=== PATIENT | female | born 1990 | race Caucasian/White ===

== ENCOUNTER 2018-04-10 05:57 | Emergency (ER) | payer OTHER, SELFPAY ==
--- NOTE | 2018-04-10 06:21 | ER ---
Nurse's Notes [facility] Name: Andreia Vidales Age: 27 yrs Sex: Female : 1990 Arrival Date: 04/10/2018 Time: 06:01 Bed 7 Private MD: Diagnosis: Dental root caries;Dentalgia Presentation: 04/10 06:13 Presenting complaint: Patient states: left top tooth pain. pt with dentist appointment ak1 next week. pt drove herself to ER. Transition of care: patient was not received from another setting of care. Onset of symptoms was April 10, 2018. Risk Assessment: Do you want to hurt yourself or someone else? Patient reports no desire to harm self or others. Initial Sepsis Screen: Does the patient meet any 2 criteria? No. Patient's initial sepsis screen is negative. Does the patient have a suspected source of infection? No. Patient's initial sepsis screen is negative. Care prior to arrival: None. 06:13 Method Of Arrival: Ambulatory ak1 06:13 Acuity: BILLY 4 ak1 Triage Assessment: 06:20 General: Appears in no apparent distress. Behavior is calm, cooperative. Pain: ak1 Complains of pain in lower left first molar (#19) and upper left first molar (#14). EENT: Reports pain in lower left first molar (#19) and upper left first molar (#14). Neuro: No deficits noted. Cardiovascular: No deficits noted. Respiratory: No deficits noted. GI: No signs and/or symptoms were reported involving the gastrointestinal system. : No signs and/or symptoms were reported regarding the genitourinary system. Derm: No signs and/or symptoms reported regarding the dermatologic system. Musculoskeletal: No signs and/or symptoms reported regarding the musculoskeletal system. 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 - Social history:: Smoking status: Patient uses tobacco products, smokes one-half pack cigarettes per day. - Ebola Screening: : No symptoms or risks identified at this time. Screenin:22 Abuse screen: Denies threats or abuse. Denies injuries from another. Nutritional ak1 screening: No deficits noted. Tuberculosis screening: No symptoms or risk factors identified. Fall Risk None identified. Vital Signs: 06:11 BP 131 / 87; Pulse 79; Resp 18; Temp 98.1(O); Pulse Ox 97% on R/A; Weight 77.11 kg (R); ak1 Height 5 ft. 1 in. (154.94 cm) (R); Pain 5/10; 06:11 Body Mass Index 32.12 (77.11 kg, 154.94 cm) ak1 ED Course: 06:01 Patient arrived in ED. es 06:09 Niko Montgomery PA is PHCP. jr8 06:09 Ranjan Chnag MD is Attending Physician. jr8 06:11 Andreia Scruggs, RN is Primary Nurse. ak1 06:11 Arm band placed on Patient placed in an exam room, on a stretcher, on pulse oximetry, ak1 Patient notified of wait time. 06:14 Triage completed. ak1 06:23 Patient has correct armband on for positive identification. Bed in low position. Call ak1 light in reach. Side rails up X 1. Pulse ox on. NIBP on. 06:37 No provider procedures requiring assistance completed. Patient did not have IV access ak1 during this emergency room visit. Administered Medications: 06:36 Drug: TORadol 60 mg Route: IM; Site: right gluteus; ak1 06:36 Follow up: Response: No adverse reaction ak1 06:36 Drug: Clindamycin 300 mg Route: PO; ak1 06:36 Follow up: Response: No adverse reaction ak1 Outcome: 06:20 Discharge ordered by . jr8 06:37 Discharged to home ambulatory. ak1 06:37 Condition: good 06:37 Discharge instructions given to patient, Instructed on discharge instructions, follow up and referral plans. no drinking with medication, no driving heavy equipment, medication usage, safe sex practices, control, Demonstrated understanding of instructions, follow-up care, medications, Prescriptions given X 3. 06:42 Patient left the ED. ak1 Signatures: Mary [employer] Painting Niko Montgomery PA PA jr8 Andreia Scruggs, RN RN ak1
--- NOTE | 2018-04-10 06:21 | EDPHYS ---
Physician Documentation [facility] Name: Andreia Vidales Age: 27 yrs Sex: Female : 1990 Arrival Date: 04/10/2018 Time: 06:01 Bed 7 Private MD: ED Physician Ranjan Chang HPI: 04/10 06:16 This 27 yrs old Female presents to ER via Ambulatory with complaints of jr8 Toothache. 06:16 The patient presents with broken tooth/teeth, pain. The problem is located in the left jr8 upper jaw. Onset: The symptoms/episode began/occurred acutely, last night. Duration: The symptoms are continuous. Modifying factors: The symptoms are alleviated by nothing, the symptoms are aggravated by air, chewing, talking. Associated signs and symptoms: The patient has no apparent associated signs or symptoms. Severity of symptoms: At their worst the symptoms were moderate, in the emergency department the symptoms are unchanged. The patient has experienced similar episodes in the past, a few times. The patient has not recently seen a physician. Stated that she has bad teeth. Started with pain in the upper left jaw last night that woke him up from sleep. Pain has continued through to this morning without relief . 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 - Social history:: Smoking status: Patient uses tobacco products, smokes one-half pack cigarettes per day. - Ebola Screening: : No symptoms or risks identified at this time. ROS: 06:16 Constitutional: Negative for fever, chills, and weight loss. jr8 06:16 ENT: Positive for dental pain. 06:16 All other systems are negative. Exam: 06:16 Head/Face: Normocephalic, atraumatic. Eyes: Pupils equal round and reactive to light, jr8 extra-ocular motions intact. Lids and lashes normal. Conjunctiva and sclera are non-icteric and not injected. Cornea within normal limits. Periorbital areas with no swelling, redness, or edema. Neck: Trachea midline, no thyromegaly or masses palpated, and no cervical lymphadenopathy. Supple, full range of motion without nuchal rigidity, or vertebral point tenderness. No Meningismus. Cardiovascular: Regular rate and rhythm with a normal S1 and S2. No gallops, murmurs, or rubs. Normal PMI, no JVD. No pulse deficits. Respiratory: Lungs have equal breath sounds bilaterally, clear to auscultation and percussion. No rales, rhonchi or wheezes noted. No increased work of breathing, no retractions or nasal flaring. Abdomen/GI: Soft, non-tender, with normal bowel sounds. No distension or tympany. No guarding or rebound. No evidence of tenderness throughout. Back: No spinal tenderness. No costovertebral tenderness. Full range of motion. Skin: Warm, dry with normal turgor. Normal color with no rashes, no lesions, and no evidence of cellulitis. MS/ Extremity: Pulses equal, no cyanosis. Neurovascular intact. Full, normal range of motion. Neuro: Awake and alert, GCS 15, oriented to person, place, time, and situation. Cranial nerves II-XII grossly intact. Motor strength 5/5 in all extremities. Sensory grossly intact. Cerebellar exam normal. Normal gait. 06:16 ENT: Exam is negative for earache, ear discharge, TM abnormalities, nasal discharge, Mouth: Lips: moist, Oral mucosa: pink and intact, moist, Gums: pink, Tongue: is moist, Posterior pharynx: Airway: patent, Tonsils: are normal in appearance, Uvula: midline, non-edematous, no erythema, swelling, is not appreciated, erythema, is not appreciated, Dental exam: dental caries, that is moderate, diffusely, fractured teeth are noted, specifically the upper left first molar (#14) and lower left first molar (#19), pain, that is moderate, specifically in the upper left first molar (#14). Vital Signs: 06:11 BP 131 / 87; Pulse 79; Resp 18; Temp 98.1(O); Pulse Ox 97% on R/A; Weight 77.11 kg (R); ak1 Height 5 ft. 1 in. (154.94 cm) (R); Pain 5/10; 06:11 Body Mass Index 32.12 (77.11 kg, 154.94 cm) ak1 MDM: 06:09 Patient medically screened. jr8 06:16 Data reviewed: vital signs, nurses notes, and as a result, I will discharge patient. jr8 Data interpreted: Pulse oximetry: on room air is 97 %. Interpretation: normal. Counseling: I had a detailed discussion with the patient and/or guardian regarding: the historical points, exam findings, and any diagnostic results supporting the discharge/admit diagnosis, the need for outpatient follow up, a dentist, to return to the emergency department if symptoms worsen or persist or if there are any questions or concerns that arise at home. Administered Medications: 06:36 Drug: TORadol 60 mg Route: IM; Site: right gluteus; ak1 06:36 Follow up: Response: No adverse reaction ak1 06:36 Drug: Clindamycin 300 mg Route: PO; ak1 06:36 Follow up: Response: No adverse reaction ak1 Disposition: 04/11 04:04 Co-signature as Attending Physician, Ranjan Chang MD I agree with the assessment and wa plan of care. Disposition: 04/10/18 06:20 Discharged to Home. Impression: Dental root caries, Dentalgia. - Condition is Stable. - Discharge Instructions: Dental Caries, Adult, Dental Pain. - Prescriptions for Clindamycin HCl 300 mg Oral Capsule - take 1 capsule by ORAL route every 6 hours for 10 days; 40 capsule. Ibuprofen 800 mg Oral Tablet - take 1 tablet by ORAL route every 8 hours As needed take with food; 30 tablet. Tylenol- Codeine #3 300-30 mg Oral Tablet - take 2 tablets by ORAL route every 6 hours As needed; 20 tablet. - Medication Reconciliation Form, Thank You Letter, Antibiotic Education, Prescription Opioid Use, Work release form form. - Follow up: Private Physician; When: 1 week; Reason: Recheck today's complaints, Continuance of care, Re-evaluation by your physician. - Problem is new. - Symptoms have improved. Signatures: Niko Montgomery PA PA jr8 Andreia Scruggs RN RN ak1 Ranjan Chang MD MD wa Corrections: (The following items were deleted from the chart) 04/10 06:42 06:20 04/10/2018 06:20 Discharged to Home. Impression: Dental root caries; Dentalgia. ak1 Condition is Stable. Prescriptions for Clindamycin HCl 300 mg Oral Capsule - take 1 capsule by ORAL route every 6 hours for 10 days; 40 capsule, Ibuprofen 800 mg Oral Tablet - take 1 tablet by ORAL route every 8 hours As needed take with food; 30 tablet, Tylenol-Codeine #3 300-30 mg Oral Tablet - take 2 tablets by ORAL route every 6 hours As needed; 20 tablet. and Forms are Medication Reconciliation Form, Thank You Letter, Antibiotic Education, Prescription Opioid Use. Follow up: Private Physician; When: 1 week; Reason: Recheck today's complaints, Continuance of care, Re-evaluation by your physician. Problem is new. Symptoms have improved. jr8
[2018-04-10] MEDS ORDERED: CLINDAMYCIN HCL 150 MG CAP ONE (06:34)
[2018-04-10] MEDS ORDERED: KETOROLAC 30 MG/ML INJ ONE (06:35)
[2018-04-10 06:53] VITALS: BP 131/87; TEMP 98.1; O2SAT 97
== END 2018-04-10 06:42 | disposition home or self-care (01) ==
LOC: ER 05:57
DX: K02.7 Dental root caries (principal); F17.210 Nicotine dependence, cigarettes, uncomplicated; Z88.0 Allergy status to penicillin
CPT/HCPCS: 96372; 99283

== ENCOUNTER 2020-04-04 20:06 | Emergency (ER) | payer OTHER ==
--- OUTSIDE RECORDS SUMMARY | 2020-04-04 20:08 | XMS REPORT | Continuity of Care Document ---
:1990 Author Organization [facility] t Address [address] [place] [address] Care Team Providers Name Role Phone Samm BERRY Attending Clinician Doctor Unassigned, Name Attending Clinician Unavailable Problems This patient has no known problems. Allergies, Adverse Reactions, Alerts This patient has no known allergies or adverse reactions. Medications This patient has no known medications. Procedures This patient has no known procedures. Encounters Start End Encounter Admission Attending Care Care Encounter Source Date/Time Date/Time Type Type Clinicians Facility Department ID 2019-12-23 2019-12-23 Office SANDRA Quijano [id number] 14:09:22 14:39:22 Visit Wendy Champion [id number] [place] [id number] [place] [id number] [address] 2019-12-23 2019-12-23 Orders Doctor JOSUE [id number] 00:00:00 00:00:00 Only UnassTERE carias [id number] [place] [facility] [id number] Results This patient has no known results.
[2020-04-04] MEDS ORDERED: FENTANYL CITR 100 MCG/2 ML ONE ×2 (21:11→21:44)
[2020-04-04 21:12] LABS: Absolute Lymphocytes (CBC) 3.9 K/uL (0.7-4.9); Basophils % 1.1 % (0-1.3); Hematocrit 39.2 % (36.0-45.0); Lymphocytes % 39.5 % (15.3-44.8); MPV 7.9 fL (7.6-11.3); RBC Red Blood Cell Count 4.51 M/uL (3.86-4.86)
[2020-04-04] MEDS ORDERED: NA CHLORIDE 0.9% 1,000 ML ONE (21:12)
[2020-04-04] MEDS ORDERED: ONDANSETRON 4 MG/2 ML VIAL ONE (21:12)
[2020-04-04 21:21] LABS: ALT/SGPT 42 U/L (12-78); AST/SGOT 23 U/L (15-37); Albumin 3.5 g/dL (3.4-5.0); Alkaline Phosphatase 112 U/L (45-117); BUN Blood Urea Nitrogen 10 mg/dL (7-18); Bicarbonate 26 mmol/L (21-32); Bilirubin Direct 0.1 mg/dL (0-0.2); Bilirubin Total 0.3 mg/dL (0.2-1.0); Glucose Level 81 mg/dL (74-106); Lipase 88 U/L (73-393); Potassium 3.6 mmol/L (3.5-5.1); Protein, Total 7.4 g/dL (6.4-8.2); Sodium Level 140 mmol/L (136-145)
--- NOTE | 2020-04-04 21:24 | EDPHYS ---
Physician Documentation [facility] Name: Andreia Vidales Age: 29 yrs Sex: Female : 1990 Arrival Date: 04/04/2020 Time: 20:10 Bed 7 Private MD: ED Physician Oliver South HPI: 04/04 20:42 This 29 yrs old Female presents to ER via Ambulatory with complaints of Flank kb Pain - gallbladder. 20:42 The patient presents with abdominal pain in the right upper quadrant. Onset: The kb symptoms/episode began/occurred 2 day(s) ago. The symptoms do not radiate. Associated signs and symptoms: none. The symptoms are described as constant. Modifying factors: The symptoms are alleviated by nothing, the symptoms are aggravated by nothing. Severity of pain: At its worst the pain was moderate in the emergency department the pain is unchanged. The patient has experienced similar episodes in the past. The patient has not recently seen a physician. Historical: - Allergies: 20:18 PENICILLINS; ll1 20:18 Codeine; ll1 20:18 [place]; ll1 - PSHx: 20:18 ; tubes tied; ll1 - Immunization history:: Flu vaccine is not up to date. - Social history:: Smoking status: Patient/guardian denies using tobacco, Stopped _ months ago .5. ROS: 20:41 Constitutional: Negative for fever, chills, and weight loss, Cardiovascular: Negative kb for chest pain, palpitations, and edema, Respiratory: Negative for shortness of breath, cough, wheezing, and pleuritic chest pain, Back: Negative for injury and pain, MS/Extremity: Negative for injury and deformity, Skin: Negative for injury, rash, and discoloration, Neuro: Negative for headache, weakness, numbness, tingling, and seizure. 20:41 Abdomen/GI: Positive for abdominal pain, Negative for nausea, vomiting, and diarrhea. Exam: 20:41 Constitutional: This is a well developed, well nourished patient who is awake, alert, kb and in no acute distress. Head/Face: Normocephalic, atraumatic. Chest/axilla: Normal chest wall appearance and motion. Nontender with no deformity. No lesions are appreciated. Cardiovascular: Regular rate and rhythm with a normal S1 and S2. No gallops, murmurs, or rubs. Normal PMI, no JVD. No pulse deficits. Respiratory: Lungs have equal breath sounds bilaterally, clear to auscultation and percussion. No rales, rhonchi or wheezes noted. No increased work of breathing, no retractions or nasal flaring. Back: No spinal tenderness. No costovertebral tenderness. Full range of motion. Skin: Warm, dry with normal turgor. Normal color with no rashes, no lesions, and no evidence of cellulitis. MS/ Extremity: Pulses equal, no cyanosis. Neurovascular intact. Full, normal range of motion. Neuro: Awake and alert, GCS 15, oriented to person, place, time, and situation. Cranial nerves II-XII grossly intact. Motor strength 5/5 in all extremities. Sensory grossly intact. Cerebellar exam normal. Normal gait. 20:41 Abdomen/GI: Inspection: abdomen appears normal, Bowel sounds: normal, in all quadrants, Palpation: soft, in all quadrants, moderate abdominal tenderness, in the right upper quadrant. Vital Signs: 20:18 BP 114 / 83; Pulse 69; Resp 17; Temp 98.6; Pulse Ox 100% ; Weight 72.57 kg; Height 5 ll1 ft. 1 in. (154.94 cm); Pain 4/10; 21:00 BP 108 / 66; Pulse 68; Resp 16; Pulse Ox 100% on R/A; rv 22:00 BP 112 / 80; Pulse 78; Resp 18; Temp 98.5; Pulse Ox 99% on R/A; rv 20:18 Body Mass Index 30.23 (72.57 kg, 154.94 cm) ll1 MDM: 20:21 Patient medically screened. kb 20:41 Data reviewed: vital signs, nurses notes. Data interpreted: Pulse oximetry: on room air kb is 100 %. Interpretation: normal. 21:23 Counseling: I had a detailed discussion with the patient and/or guardian regarding: the kb historical points, exam findings, and any diagnostic results supporting the discharge/admit diagnosis, lab results, radiology results, the need for outpatient follow up, a general surgeon, to return to the emergency department if symptoms worsen or persist or if there are any questions or concerns that arise at home. 04/04 20:21 Order name: Basic Metabolic Panel; Complete Time: 21:23 kb 11/03 20:21 Order name: CBC with Diff; Complete Time: 21:16 kb 04/04 20:21 Order name: US Abdomen Limited kb 04/04 20:21 Order name: Hepatic Function; Complete Time: 21:23 kb 04/04 20:21 Order name: Lipase; Complete Time: 21:23 kb 04/04 20:21 Order name: IV Saline Lock; Complete Time: 20:50 kb 04/04 20:21 Order name: Labs collected and sent; Complete Time: 20:50 kb Administered Medications: 21:05 Drug: NS 0.9% 1000 ml Route: IV; Rate: 1000 ml; Site: right antecubital; rv 22:20 Follow up: IV Status: Completed infusion; IV Intake: 1000ml rv 21:06 Drug: fentaNYL (PF) 50 mcg {Note: rass 0.} Route: IVP; Site: right antecubital; rv 22:00 Follow up: Response: No adverse reaction; Pain is unchanged, physician notified rv 21:06 Drug: Zofran (Ondansetron) 4 mg Route: IVP; Site: right antecubital; rv 22:20 Follow up: Response: No adverse reaction rv 21:30 Drug: fentaNYL (PF) 50 mcg Route: IVP; Site: right antecubital; jb4 22:00 Follow up: Response: No adverse reaction; Pain is unchanged, physician notified; RASS: rv Alert and Calm (0) 21:30 Drug: Pepcid 20 mg Route: IVP; Site: right antecubital; jb4 22:21 Follow up: Response: No adverse reaction rv 21:57 CANCELLED (Physician Discretion): morphine 4 mg IVP once; RASS on ADMIN: Combtv4, Very kb Agttd3, Agttd2, Rstlss1, AlertClm0, Drwsy-1, Lt Sdtn-2, Mod Sdtn-3, Dp Sdtn-4, UnArsble-5 22:02 Drug: TORadol 30 mg Route: IVP; Site: right antecubital; rv 22:21 Follow up: Response: No adverse reaction; Pain is decreased rv Disposition: 04/05 09:50 Co-signature as Attending Physician, Oliver South MD I agree with the assessment and [place] plan of care. Disposition: 04/04/20 21:24 Discharged to Home. Impression: Cholelithiasis. - Condition is Stable. - Discharge Instructions: Cholelithiasis, [id number]. - Prescriptions for Zofran 4 mg Oral Tablet - take 1 tablet by ORAL route every 6 hours As needed; 20 tablet. Diclofenac Sodium 75 mg Oral Tablet, Delayed Release (E.C.) - take 1 tablet by ORAL route 2 times per day As needed; 30 tablet. - Medication Reconciliation Form, Thank You Letter, Antibiotic Education, Prescription Opioid Use form. - Follow up: Emergency Department; When: As needed; Reason: Worsening of condition. Follow up: Private Physician; When: 2 - 3 days; Reason: Recheck today's complaints, Continuance of care, Re-evaluation by your physician. Signatures: Dispatcher [employer] EDAmairani Davenport, MARKETING INTERN-C MARKETING INTERN-Oliver Becker MD MD cha Bryson, James, RN RN jb4 Dar Meléndez RN RN rv Margo Harvey RN RN ll1 Corrections: (The following items were deleted from the chart) 04/04 21:57 21:56 morphine 4 mg IVP once; RASS on ADMIN: Combtv4, Very Agttd3, Agttd2, Rstlss1, kb AlertClm0, Drwsy-1, Lt Sdtn-2, Mod Sdtn-3, Dp Sdtn-4, UnArsble-5 ordered. kb 22:24 21:24 04/04/2020 21:24 Discharged to Home. Impression: Cholelithiasis. Condition is rv Stable. Forms are Medication Reconciliation Form, Thank You Letter, Antibiotic Education, Prescription Opioid Use. Follow up: Emergency Department; When: As needed; Reason: Worsening of condition. Follow up: Private Physician; When: 2 - 3 days; Reason: Recheck today's complaints, Continuance of care, Re-evaluation by your physician. kb
--- NOTE | 2020-04-04 21:24 | ER ---
Nurse's Notes [facility] Name: Andreia Vidales Age: 29 yrs Sex: Female : 1990 Arrival Date: 04/04/2020 Time: 20:10 Bed 7 Private MD: Diagnosis: Cholelithiasis Presentation: 04/04 20:18 Coronavirus screen: Client denies travel out of the [place] in the last 14 days. At this ll1 time, the client does not indicate any symptoms associated with coronavirus-19. Ebola Screen: Patient denies travel to an Ebola-affected area in the 21 days before illness onset. Initial Sepsis Screen: Does the patient meet any 2 criteria? No. Patient's initial sepsis screen is negative. Does the patient have a suspected source of infection? Yes: Acute abdominal pain. Risk Assessment: Do you want to hurt yourself or someone else? Patient reports no desire to harm self or others. Onset of symptoms was April 03, 2020. 20:18 Method Of Arrival: Ambulatory ll1 20:18 Acuity: BILLY 3 ll1 20:19 Chief complaint: Patient states: RUQ abd pain for 2 days, more constant than usual. ll1 Pain more diffuse for the past two days. States she knows she has gallbladder problems. + N/V. No fever. Historical: - Allergies: 20:18 PENICILLINS; ll1 20:18 Codeine; ll1 20:18 [place]; ll1 - PSHx: 20:18 ; tubes tied; ll1 - Immunization history:: Flu vaccine is not up to date. - Social history:: Smoking status: Patient/guardian denies using tobacco, Stopped _ months ago .5. Screenin:08 Abuse screen: Denies threats or abuse. Denies injuries from another. Nutritional rv screening: No deficits noted. Tuberculosis screening: No symptoms or risk factors identified. Fall Risk None identified. Assessment: 21:06 General: Appears uncomfortable, Behavior is calm, cooperative. Pain: Complains of pain rv in right upper quadrant. Pain: Pain currently is 6 out of 10 on a pain scale. Neuro: Level of Consciousness is awake, alert, obeys commands, Oriented to person, place, time, situation. Cardiovascular: Patient's skin is warm and dry. Respiratory: Airway is patent Respiratory effort is even, unlabored, Breath sounds are clear bilaterally. GI: Abdomen is flat, non-distended. Derm: Skin is healthy with good turgor. Vital Signs: 20:18 BP 114 / 83; Pulse 69; Resp 17; Temp 98.6; Pulse Ox 100% ; Weight 72.57 kg; Height 5 ll1 ft. 1 in. (154.94 cm); Pain 4/10; 21:00 BP 108 / 66; Pulse 68; Resp 16; Pulse Ox 100% on R/A; rv 22:00 BP 112 / 80; Pulse 78; Resp 18; Temp 98.5; Pulse Ox 99% on R/A; rv 20:18 Body Mass Index 30.23 (72.57 kg, 154.94 cm) ll1 ED Course: 20:10 Patient arrived in ED. am2 20:13 Amairani Gillette FNP-C is PHCP. kb 20:13 Oliver South MD is Attending Physician. kb 20:18 Arm band placed on Patient placed in an exam room, on a stretcher. ll1 20:19 Triage completed. ll1 20:21 Dar Meléndez, EVY is Primary Nurse. rv 20:45 Inserted saline lock: 20 gauge in right antecubital area, using aseptic technique. ds4 Blood collected. 20:49 US Abdomen Limited In Process Unspecified. EDMS 21:08 Patient has correct armband on for positive identification. Placed in gown. Bed in low rv position. Call light in reach. Pulse ox on. NIBP on. 22:23 No provider procedures requiring assistance completed. IV discontinued, intact, rv bleeding controlled, No redness/swelling at site. Pressure dressing applied. Administered Medications: 21:05 Drug: NS 0.9% 1000 ml Route: IV; Rate: 1000 ml; Site: right antecubital; rv 22:20 Follow up: IV Status: Completed infusion; IV Intake: 1000ml rv 21:06 Drug: fentaNYL (PF) 50 mcg {Note: rass 0.} Route: IVP; Site: right antecubital; rv 22:00 Follow up: Response: No adverse reaction; Pain is unchanged, physician notified rv 21:06 Drug: Zofran (Ondansetron) 4 mg Route: IVP; Site: right antecubital; rv 22:20 Follow up: Response: No adverse reaction rv 21:30 Drug: fentaNYL (PF) 50 mcg Route: IVP; Site: right antecubital; jb4 22:00 Follow up: Response: No adverse reaction; Pain is unchanged, physician notified; RASS: rv Alert and Calm (0) 21:30 Drug: Pepcid 20 mg Route: IVP; Site: right antecubital; jb4 22:21 Follow up: Response: No adverse reaction rv 21:57 CANCELLED (Physician Discretion): morphine 4 mg IVP once; RASS on ADMIN: Combtv4, Very kb Agttd3, Agttd2, Rstlss1, AlertClm0, Drwsy-1, Lt Sdtn-2, Mod Sdtn-3, Dp Sdtn-4, UnArsble-5 22:02 Drug: TORadol 30 mg Route: IVP; Site: right antecubital; rv 22:21 Follow up: Response: No adverse reaction; Pain is decreased rv Intake: 22:20 IV: 1000ml; Total: 1000ml. rv Outcome: 21:24 Discharge ordered by MD. kb 22:23 Discharged to home ambulatory, with family. rv 22:23 Condition: good 22:23 Discharge instructions given to patient, Instructed on discharge instructions, follow up and referral plans. medication usage, Demonstrated understanding of instructions, follow-up care, medications, Prescriptions given X 2. 22:24 Patient left the ED. rv Signatures: Dispatcher [employer] EDMS Amairani Gillette, WATCHER LOOKOUT TOWER-C WATCHER LOOKOUT TOWER-Daryn Choi ds4 Bc Snowden RN RN jb4 Aleena Lara am2 Dar Meléndez RN RN Margo Finn RN RN ll1
[2020-04-04] MEDS ORDERED: FAMOTIDINE 20 MG/2 ML VIAL IV ONE (21:44)
[2020-04-04] MEDS ORDERED: KETOROLAC 30 MG/ML INJ ONE (22:10)
[2020-04-04 22:40] VITALS: BP 112/80; TEMP 98.5; O2SAT 99
--- NOTE | 2020-04-05 07:08 | RAD REPORT ---
EXAM DESCRIPTION: US - Abdomen Exam Limited - 04/04/2020 8:48 pm CLINICAL HISTORY: ABD PAIN COMPARISON: ABDOMINAL EXAM LIMITED dated 09/21/2011 FINDINGS: Multiple gallstones are present along with a moderate amount of sludge. There is no wall t hickening or pericholecystic fluid. No common duct stone or biliary tree dilatation identified. IMPRESSION: Multi stone cholelithiasis and sludge. Acute cholecystitis findings are not identified.
== END 2020-04-04 22:24 | disposition home or self-care (01) ==
LOC: ER 20:06
DX: K80.20 Calculus of gallbladder without cholecystitis without obstruction (principal); Z88.0 Allergy status to penicillin; Z88.5 Allergy status to narcotic agent; Z91.018 Allergy to other foods
CPT/HCPCS: 96361; 85025; 80048; 36415; 80076; 83690; 76705; 96375; 96374; 99284; J3010 ×2; J7030; J2405

== ENCOUNTER 2023-01-10 09:20 | Observation (INO) | payer OTHER ==
[2023-01-10] MEDS ORDERED: BUPIVACAINE 0.25% PF 30 ML VIAL ONE (09:57)
[2023-01-10] MEDS: Ringers Lactate 1,000 ML IV ONE (10:00)
[2023-01-10] MEDS ORDERED: CEFOXITIN SODIUM 2 GM/VIAL ONE (10:07)
[2023-01-10] MEDS ORDERED: propofoL 200 MG/20 ML VIAL IV ONE (10:27)
[2023-01-10] MEDS ORDERED: MIDAZOLAM HCL 2 MG/2 ML INJ ONE (10:27)
[2023-01-10] MEDS ORDERED: dexAMETHasone 10 MG/ML VIAL ONE (10:27)
[2023-01-10] MEDS ORDERED: FENTANYL CITR 100 MCG/2 ML ONE ×2 (10:27→11:42)
[2023-01-10] MEDS ORDERED: LIDOCAINE 2% MPF 5 ML VIAL ONE (10:28)
[2023-01-10] MEDS ORDERED: KETOROLAC 30 MG/ML INJ ONE (10:28)
[2023-01-10] MEDS ORDERED: ROCURONIUM 50 MG/5 ML VIAL IV ONE ×2 (10:28→11:23)
[2023-01-10] MEDS ORDERED: ONDANSETRON 4 MG/2 ML VIAL ONE ×2 (10:28→14:01)
[2023-01-10] MEDS ORDERED: CIPROFLOXACIN 400mg IV 400 MG/200 ML BAG IV ONE (10:59)
[2023-01-10] MEDS ORDERED: NEOSTIGMINE 1 MG/ML -10 ML VIAL ONE (11:46)
[2023-01-10] MEDS ORDERED: GLYCOPYRROLATE 0.2 MG/ML SYR ONE (11:46)
[2023-01-10] MEDS ORDERED: TRANEXAMIC ACID 1,000 MG/10 ML VIAL IV ONE (11:51)
[2023-01-10] MEDS ORDERED: Ringers Lactate 1,000 ML IV ONE (12:06)
--- NOTE | 2023-01-10 12:17 | P.OP ---
Preoperative diagnosis: Cholecystitis with cholelithiasis Postoperative diagnosis: Cholecystitis with cholelithiasis Primary procedure: Laparoscopic cholecystectomy with ICG Anesthesia: GETA + Local Estimated blood loss: 30cc Specimen: Gallbladder Findings: Diffuse oozing from liver, all cut surfaces, short cystic duct Complications: None Implants: Surgicel, Shilpa powder Transferred to: Recovery Room Condition: Good
[2023-01-10] MEDS ORDERED: D5.45NS W/KCL 20MEQ 1,000 ML IV SCH (13:00)
[2023-01-10 13:20] LABS: Lymphocytes % 19.3 % (15.3-44.8); MCV 87.1 fL (80-100); Platelets 334 thou/uL (152-406); RBC Red Blood Cell Count 4.71 M/uL (3.86-4.86)
[2023-01-10] MEDS: FENTANYL CITR 100 MCG/2 ML ONE ×4 (13:40→14:36)
--- OUTSIDE RECORDS SUMMARY | 2023-01-10 14:14 | XMS REPORT | Continuity of Care Document ---
:1990 Author Organization [facility] t Address [address] [place] [place] [address] Care Team Providers Name Role Phone GERARDO Ricks [facility] Primary Care P hysician Unavailable MANDEEP BEAN Attending Clinician Unavailable Mandeep Griggs Attending Clinician CLIFTON BARDALES Attending Clinician Unavailable Clifton Ramirez Attending Clinician Matilda Quijano MD Attending Clinician MATILDA QUIJANO Attending Clinician Unavailable Doctor Unassigned, [place] Attending Clinician Unavailable [facility] Unavailable Pooja Castillo Attending Clinician Di Kc MD Attending Clinician Na Wright Attending Clinician [phone] CLIFTON BARDALES Admitting Clinician Unavailable Di Kc MD Admitting Clinician Payers Payer Name Policy Type Policy Number Effective Date Expiration Date [facility] [id number] 2018 CHOICE [place] ST[place] 00:00:00 Problems Condition Condition Condition Status Onset Resolution Last Treating Co mments Source Name Details Category Date Date Treatment Clinician Date Vaginal Vaginal Disease Active 2019-0 Univers condyloma condyloma 9- ity of 00:00: [place] [facility] 39 weeks 39 weeks Disease Active 2019-0 Unive rs gestation gestation 8-26 ity of of of 00:00: [place] 00 [facility] Obesity Obesity Disease Active 2019- Univers (BMI (BMI 8-26 ity of 30-39.9) 30-39.9) 00:00: [place] [address] Medical Branch Positive Positive Disease Active 2019- Overview: Un onofre GBS test GBS test 01-07 Address ity o f 00:00: intrapart [place] 00 um Medical Branch Vaginal Vaginal Disease Active 2019- Univers yeast yeast 4-09 ity of infection [place] 00:[place] [facility] [place] Tobacco Tobacco Disease Active 2019- Univers use during use during 3-11 [place] [facility] [place] Tobacco Tobacco Disease Active 2019- Univers abuse abuse 3-11 ity of 00:00: [place] [address] Medical Branch High risk High risk Disease Active 2019-0 Uni vers , , 2-11 it y of antepartum antepartum 00:00[place] 00 [place] Multiparit Multiparit Disease Active 2019-0 U nivers y y 2-11 ity of 00:00: [place] [address] Medical Branch History of History of Disease Active 2019-0 U nivers 2-11 ity of section section 00:00: [place] [facility] Nausea and Nausea and Disease Active 2019-0 U nivers vomiting vomiting 2-11 ity of during during 00:00: [place] 00 [facility] Obesity in Obesity in Disease Active 2019-0 U nivers 2-11 ity of 00:00: [place] [address] Medical Branch Allergies, Adverse Reactions, Alerts Allergy Allergy Status Severity Reaction(s) Onset Inactive Treating Comm ents Source Name Type Date Date Clinician Penicill Propensi Active Swelling Univ ers ins ty to 924 ity of adverse 00:00: [place] reaction 00 Medical s Branch PENICILL Drug Active Swelling Univer s INS Class 9- ity of 00:00: [place] [facility] Penicill Propensi Active Swelling 2016-0 Univ ers ins ty to 9-24 ity of adverse 00:00: [place] reaction 00 Medical s Branch Social History Social Habit Start Date Stop Date Quantity Comments Source ASSERTION 2018-05-10 University of 00:00:00 [facility] History of tobacco Cigarette Smoker University of use [facility] Exposure to 2022-03-14 2022-03-24 Not sure University SARS-CoV-2 (event) 00:00:00 20:14:00 [facility] Alcohol intake 2022-03-24 2022-03-24 Current University 00:00:00 00:00:00 non-drinker of [facility] alcohol [place] (finding) Tobacco use and 2018-07-13 2018-07-13 Smokeless Universit y of exposure 00:00:00 00:00:00 tobacco non-user [facility]ly [facility] dical [place] Cigarettes smoked 2018-07-13 2018-07-13 Univers ity of current (pack per 00:00:00 00:00:00 [facility] ) - Reported Branch Cigarette 2018-07-13 2018-07-13 University of pack-years 00:00:00 00:00:00 [facility] Sex Ass[birth year] At [birth year] Universit y of 00:00:00 00:00:00 [facility] Smoking Status Start Date Stop Date Source Smokes tobacco daily 2018-07-13 00:00:00 Univers ity of [facility] Medications Ordered Filled Start Stop Current Ordering Indication Dosage Frequency Signature Comments Components Source Medication Medication Date Date Medication? Clinician (SIG) Name Name traMADoL 2021-06 No 50mg 50 mg, Univer s (ULTRAM) 0-24 10-24 Oral, ity of tablet 50 03:15: 02:27 ONCE, 1 [place] mg 00 :00 dose, On Medical [place] 03/24/22 at 2215, Routine amoxicillin 2021-06 Yes Take by Uni vers /potassium 0-23 mouth. ity of clav 21:53: [place] (AUGMENTIN 57 Medical ORAL) Branch traMADoL 50 2021-06 Yes [id number] 50mg Take 1 Univ ers mg tablet 0-23 tablet by ity o f 00:00: mouth [place] 00 every 6 Medical (six) Branch hours as needed for Pain (scale 7-10). Indication s: acute pain chlorhexidi 2021-06- No [id number] 15mL Swish and Univers ne 0.12 % 0-31 spit out ity o f mouthwash 00:00: 04:59 15 mL in [place] 00 :00 the Medical morning Branch and 15 mL in the evening. Do all this for 7 days. morpHINE No 4mg 4 mg, Slow Un onofre injection 4 08-07 IV Push, ity of mg 09:00: 07:53 ONCE, 1 [place] 00 :00 dose, On Medical Fri08/07/21 Branch at 0300, STAT ketorolac No 30mg 30 mg, Unive rs (TORADOL) 08-07 Slow IV ity of injection 09:00: 07:53 Push, [place] 30 mg 00 :00 ONCE, 1 Medical dose, On Branch Fri08/07/21 at 0300, Routine
family member caretaker approving Restricted medication : CLIFTON BARDALES iopamidol 2021- No [id number] 120mL 120 mL, Univers (ISOVUE 08-07 Intravenou ity o f 370-500 mL) 08:15: 07:12 s, ONCE, 1 [place] injection 00 :00 dose, On Medica l 120 mL Fri08/07/21 Branch at 0215, Routine maalox:diph No 15mL 15 mL, Uni vers enhydrAMINE 08-07 Oral, ity of :lidocaine 07:45: 06:52 ONCE, 1 [place] 2 % viscous 00 :00 dose, On Medi [place] 1:1:1 Fri08/07/21 Branch (FIRST-MOUT at 0145, [facility]) Routine oral suspension 15 mL ondansetron No 4mg 4 mg, Slow Univers (ZOFRAN 08-07 IV Push, ity of (PF)) 07:45: 06:41 ONCE, 1 [place] injection 4 00 :00 dose, On Medi [place] mg Fri08/07/21 Branch at 0145, BEN morpHINE No 4mg 4 mg, Slow Un onofre injection 4 08-07 IV Push, ity of mg 07:45: 06:41 ONCE, 1 [place] 00 :00 dose, On Medical Fri08/07/21 Branch at 0145, STAT NaCl 0.9% 1000mL at 999 Uni vers (NS) bolus 3-08 03-08 mL/hr, ity of infusion 07:45: 08:30 1,000 mL, [place] 1,000 mL 00 :00 IV Medical Infusion, Branch ONCE, 1 dose, On Fri08/07/21 at 0145, BEN acetaminoph Yes [id number] 1{tbl} Take 1 Un onofre en-codeine 3-08 tablet by ity of 300-30 mg 00:00: mouth [place] tablet 00 every 4 Medical (four) Branch hours as needed for Pain (scale 7-10). Indication s: acute pain acetaminoph 2021- No [id number] 1{tbl} Take 1 U nivers en-codeine 3-08 10-23 tablet by ity of 300-30 mg 00:00: 00:00 mouth [place] tablet 00 :00 every 4 Medical (four) Branch hours as needed for Pain (scale 7-10). Indication s: acute pain traMADol 2018-06 Yes [id number] 50mg Take 1 Uni vers (ULTRAM) 50 1-17 tablet by ity of mg tablet 00:00: mouth [place] 00 every 6 Medical (six) Branch hours as needed for Pain (scale 7-10). ondansetron 2018-06 Yes [id number] 4mg Take 1 Univers (ZOFRAN) 4 1-17 tablet by ity of mg tablet 00:00: mouth [place] 00 every 8 Medical (eight) Branch hours as needed for Nausea and Vomiting (N/V). traMADol 2018-06 Yes [id number] 50mg Take 1 Uni vers (ULTRAM) 50 1-17 tablet by ity of mg tablet 00:00: mouth [place] 00 every 6 Medical (six) Branch hours as needed for Pain (scale 7-10). ondansetron 2018-06 Yes [id number] 4mg Take 1 Univers (ZOFRAN) 4 1-17 tablet by ity of mg tablet 00:00: mouth [place] 00 every 8 Medical (eight) Branch hours as needed for Nausea and Vomiting (N/V). traMADol 2018-06 Yes [id number] 50mg Take 1 Uni vers (ULTRAM) 50 1-17 tablet by ity of mg tablet 00:00: mouth [place] 00 every 6 Medical (six) Branch hours as needed for Pain (scale 7-10). ondansetron 2018-06 Yes [id number] 4mg Take 1 Univers (ZOFRAN) 4 1-17 tablet by ity of mg tablet 00:00: mouth [place] 00 every 8 Medical (eight) Branch hours as needed for Nausea and Vomiting (N/V). traMADol 2018-06 Yes [id number] 50mg Take 1 Uni vers (ULTRAM) 50 1-17 tablet by ity of mg tablet 00:00: mouth [place] 00 every 6 Medical (six) Branch hours as needed for Pain (scale 7-10). ondansetron 2018-06 Yes [id number] 4mg Take 1 Univers (ZOFRAN) 4 1-17 tablet by ity of mg tablet 00:00: mouth [place] 00 every 8 Medical (eight) Branch hours as needed for Nausea and Vomiting (N/V). traMADol 2018-06 Yes [id number] 50mg Take 1 Uni vers (ULTRAM) 50 1-17 tablet by ity of mg tablet 00:00: mouth [place] 00 every 6 Medical (six) Branch hours as needed for Pain (scale 7-10). ondansetron 2018-06 Yes [id number] 4mg Take 1 Univers (ZOFRAN) 4 1-17 tablet by ity of mg tablet 00:00: mouth [place] 00 every 8 Medical (eight) Branch hours as needed for Nausea and Vomiting (N/V). traMADol 2018-06- No [id number] 50mg Take 1 Un onofre (ULTRAM) 50 1-17 10-23 tablet by it y of mg tablet 00:00: 00:00 mouth [place] 00 :00 every 6 Medical (six) Branch hours as needed for Pain (scale 7-10). ondansetron 2018-06- No [id number] 4mg Take 1 Univers (ZOFRAN) 4 1-17 10-23 tablet by ity of mg tablet 00:00: 00:00 mouth [place] 00 :00 every 8 Medical (eight) Branch hours as needed for Nausea and Vomiting (N/V). traMADol 50 2018-06 Yes [id number] 50mg Take 1 Univers mg tablet 0-12 tablet by ity o f 00:00: mouth [place] 00 every 6 Medical (six) Branch hours as needed for Pain (scale 4-6). ondansetron 2018-06 Yes [id number] 4mg Take 1 Univers 4 mg 0-12 tablet by ity of disintegrat 00:00: mouth [place] ing tablet 00 every 8 Medica l (eight) Branch hours as needed for Nausea and Vomiting (N/V). traMADol 50 2018-06 Yes [id number] 50mg Take 1 Univers mg tablet 0-12 tablet by ity o f 00:00: mouth [place] 00 every 6 Medical (six) Branch hours as needed for Pain (scale 4-6). ondansetron 2018-06 Yes [id number] 4mg Take 1 Univers 4 mg 0-12 tablet by ity of disintegrat 00:00: mouth [place] ing tablet 00 every 8 Medica l (eight) Branch hours as needed for Nausea and Vomiting (N/V). traMADol 50 2018-06 Yes [id number] 50mg Take 1 Univers mg tablet 0-12 tablet by ity o f 00:00: mouth [place] 00 every 6 Medical (six) Branch hours as needed for Pain (scale 4-6). ondansetron 2018-06 Yes [id number] 4mg Take 1 Univers 4 mg 0-12 tablet by ity of disintegrat 00:00: mouth [place] ing tablet 00 every 8 Medica l (eight) Branch hours as needed for Nausea and Vomiting (N/V). traMADol 50 2018-06 Yes [id number] 50mg Take 1 Univers mg tablet 0-12 tablet by ity o f 00:00: mouth [place] 00 every 6 Medical (six) Branch hours as needed for Pain (scale 4-6). ondansetron 2018-06 Yes [id number] 4mg Take 1 Univers 4 mg 0-12 tablet by ity of disintegrat 00:00: mouth [place] ing tablet 00 every 8 Medica l (eight) Branch hours as needed for Nausea and Vomiting (N/V). traMADol 50 2018-06 Yes [id number] 50mg Take 1 Univers mg tablet 0-12 tablet by ity o f 00:00: mouth [place] 00 every 6 Medical (six) Branch hours as needed for Pain (scale 4-6). ondansetron 2018-06 Yes [id number] 4mg Take 1 Univers 4 mg 0-12 tablet by ity of disintegrat 00:00: mouth [place] ing tablet 00 every 8 Medica l (eight) Branch hours as needed for Nausea and Vomiting (N/V). traMADol 50 2018-06- No [id number] 50mg Take 1 Univers mg tablet 0-12 - tablet by ity of 00:00: 00:00 mouth [place] 00 :00 every 6 Medical (six) Branch hours as needed for Pain (scale 4-6). ondansetron 2018-06- No [id number] 4mg Take 1 Univers 4 mg 0- tablet by ity of disintegrat 00:00: 00:00 [place] ing tablet 00 :00 every 8 Medica l (eight) Branch hours as needed for Nausea and Vomiting (N/V). human Yes .5mL 0.5 mL, Univers papillomav 8-27 Intramuscu ity of vac,9-fariba(P 06:10: [facility], [place] F) 58 ONCE-PRIOR Medical (GARDASIL 9 TO Branch (PF)) vial DISCHARGE, 0.5 mL 1 dose, Starting Fri01/26/19 at 0110, Until Discontinu ed, Routine, Give vaccine prior to discharge ibuprofen Yes [id number] 600mg Take 1 Univers 600 mg 8-27 tablet by ity of tablet 00:00: mouth [place] 00 every 6 Medical (six) Branch hours as needed for Pain (scale 1-3) or Pain (scale 4-6) (Pain). Take with food or milk. HYDROcodone 2018- Yes [id number] 1{tbl} Take 1 Univers -acetaminop 8-27 tablet by ity of hen 5-325 00:00: mouth [place] mg tablet 00 every 6 Medical (six) Branch hours as needed for Pain (scale 4-6). docusate 2018- Yes [id number] 240mg Take 1 U nivers calcium 240 8-27 capsule by it y of mg capsule 00:00: mouth once [place] 00 daily as Medical needed for Branch Constipati on. 2018- Yes [id number] 1{tbl} Take 1 Univers vitamin 8-27 tablet by ity of w/FA tablet 00:00: mouth [place] 00 daily. Medical Branch ferrous 2018- Yes [id number] 325mg Take 1 Un onofre sulfate 325 8-27 tablet by ity of mg (65 mg 00:00: mouth 2 [place] iron) 00 (two) Medical tablet times Branch daily. ibuprofen Yes [id number] 600mg Take 1 Univers 600 mg 8-27 tablet by ity of tablet 00:00: mouth [place] 00 every 6 Medical (six) Branch hours as needed for Pain (scale 1-3) or Pain (scale 4-6) (Pain). Take with food or milk. HYDROcodone Yes [id number] 1{tbl} Take 1 Univers -acetaminop 8-27 tablet by ity of hen 5-325 00:00: mouth [place] mg tablet 00 every 6 Medical (six) Branch hours as needed for Pain (scale 4-6). docusate Yes [id number] 240mg Take 1 U nivers calcium 240 8-27 capsule by it y of mg capsule 00:00: mouth once [place] 00 daily as Medical needed for Branch Constipati on. Yes [id number] 1{tbl} Take 1 Univers vitamin 8-27 tablet by ity of w/FA tablet 00:00: mouth [place] 00 daily. Medical Branch ferrous Yes [id number] 325mg Take 1 Un onofre sulfate 325 8-27 tablet by ity of mg (65 mg 00:00: mouth 2 [place] iron) 00 (two) Medical tablet times Branch daily. ibuprofen Yes [id number] 600mg Take 1 Univers 600 mg 8-27 tablet by ity of tablet 00:00: mouth [place] 00 every 6 Medical (six) Branch hours as needed for Pain (scale 1-3) or Pain (scale 4-6) (Pain). Take with food or milk. HYDROcodone Yes [id number] 1{tbl} Take 1 Univers -acetaminop 8-27 tablet by ity of hen 5-325 00:00: mouth [place] mg tablet 00 every 6 Medical (six) Branch hours as needed for Pain (scale 4-6). docusate Yes [id number] 240mg Take 1 U nivers calcium 240 8-27 capsule by it y of mg capsule 00:00: mouth once [place] 00 daily as Medical needed for Branch Constipati on. Yes [id number] 1{tbl} Take 1 Univers vitamin 8-27 tablet by ity of w/FA tablet 00:00: mouth [place] 00 daily. Medical Branch ferrous 2018- Yes [id number] 325mg Take 1 Un onofre sulfate 325 8-27 tablet by ity of mg (65 mg 00:00: mouth 2 [place] iron) 00 (two) Medical tablet times Branch daily. ibuprofen Yes [id number] 600mg Take 1 Univers 600 mg 8-27 tablet by ity of tablet 00:00: mouth [place] 00 every 6 Medical (six) Branch hours as needed for Pain (scale 1-3) or Pain (scale 4-6) (Pain). Take with food or milk. HYDROcodone Yes [id number] 1{tbl} Take 1 Univers -acetaminop 8-27 tablet by ity of hen 5-325 00:00: mouth [place] mg tablet 00 every 6 Medical (six) Branch hours as needed for Pain (scale 4-6). docusate Yes [id number] 240mg Take 1 U nivers calcium 240 8-27 capsule by it y of mg capsule 00:00: mouth once [place] 00 daily as Medical needed for Branch Constipati on. Yes [id number] 1{tbl} Take 1 Univers vitamin 8-27 tablet by ity of w/FA tablet 00:00: mouth [place] 00 daily. Medical Branch ferrous Yes [id number] 325mg Take 1 Un onofre sulfate 325 8-27 tablet by ity of mg (65 mg 00:00: mouth 2 [place] iron) 00 (two) Medical tablet times Branch daily. ibuprofen Yes [id number] 600mg Take 1 Univers 600 mg 8-27 tablet by ity of tablet 00:00: mouth [place] 00 every 6 Medical (six) Branch hours as needed for Pain (scale 1-3) or Pain (scale 4-6) (Pain). Take with food or milk. HYDROcodone Yes [id number] 1{tbl} Take 1 Univers -acetaminop 8-27 tablet by ity of hen 5-325 00:00: mouth [place] mg tablet 00 every 6 Medical (six) Branch hours as needed for Pain (scale 4-6). ibuprofen Yes [id number] 600mg Take 1 Univers 600 mg 8-27 tablet by ity of tablet 00:00: mouth [place] 00 every 6 Medical (six) Branch hours as needed for Pain (scale 1-3) or Pain (scale 4-6) (Pain). Take with food or milk. HYDROcodone Yes [id number] 1{tbl} Take 1 Univers -acetaminop 8-27 tablet by ity of hen 5-325 00:00: mouth [place] mg tablet 00 every 6 Medical (six) Branch hours as needed for Pain (scale 4-6). ibuprofen Yes [id number] 600mg Take 1 Univers 600 mg 8-27 tablet by ity of tablet 00:00: mouth [place] 00 every 6 Medical (six) Branch hours as needed for Pain (scale 1-3) or Pain (scale 4-6) (Pain). Take with food or milk. HYDROcodone Yes [id number] 1{tbl} Take 1 Univers -acetaminop 8-27 tablet by ity of hen 5-325 00:00: mouth [place] mg tablet 00 every 6 Medical (six) Branch hours as needed for Pain (scale 4-6). ibuprofen Yes [id number] 600mg Take 1 Univers 600 mg 8-27 tablet by ity of tablet 00:00: mouth [place] 00 every 6 Medical (six) Branch hours as needed for Pain (scale 1-3) or Pain (scale 4-6) (Pain). Take with food or milk. HYDROcodone Yes [id number] 1{tbl} Take 1 Univers -acetaminop 8-27 tablet by ity of hen 5-325 00:00: mouth [place] mg tablet 00 every 6 Medical (six) Branch hours as needed for Pain (scale 4-6). ibuprofen Yes [id number] 600mg Take 1 Univers 600 mg 8-27 tablet by ity of tablet 00:00: mouth [place] 00 every 6 Medical (six) Branch hours as needed for Pain (scale 1-3) or Pain (scale 4-6) (Pain). Take with food or milk. HYDROcodone Yes [id number] 1{tbl} Take 1 Univers -acetaminop 8-27 tablet by ity of hen 5-325 00:00: mouth [place] mg tablet 00 every 6 Medical (six) Branch hours as needed for Pain (scale 4-6). ibuprofen Yes [id number] 600mg Take 1 Univers 600 mg -27 tablet by ity of tablet 00:00: mouth [place] 00 every 6 Medical (six) Branch hours as needed for Pain (scale 1-3) or Pain (scale 4-6) (Pain). Take with food or milk. HYDROcodone 2021- No [id number] 1{tbl} Take 1 Univers -acetaminop 01-26 10-23 tablet by it y of hen 5-325 00:00: 00:00 mouth [place] mg tablet 00 :00 every 6 Medical (six) Branch hours as needed for Pain (scale 4-6). 2018- No [id number] 1{tbl} Take 1 Univers vitamin 01-26 tablet by ity of w/FA tablet 00:00: 00:00 mouth [place] 00 :00 daily. Medical Branch docusate 2018- No [id number] 240mg Take 1 Univers calcium 240 01-26 capsule by i ty of mg capsule 00:00: 00:00 mouth once [place] 00 :00 daily as Medical needed for Branch Constipati on. ferrous 2018- No [id number] 325mg Take 1 U nivers sulfate 325 01-26 tablet by it y of mg (65 mg 00:00: 00:00 mouth 2 [place] iron) 00 :00 (two) Medical tablet times Branch daily. rho(D) Yes 300ug 300 mcg, Univer s immune 01-25 Intramuscu ity of globulin 18:28: lar, ONCE, [place] (RHOGAM) 02 For 1 Medical syringe 300 dose, Branch mcg Conditiona l, Routine ondansetron Yes 4mg 4 mg, Slow Univers (ZOFRAN 8 IV Push, ity of (PF)) 18:27: Q8HPRN, [place] injection 4 57 Starting Medi [place] mg Mon Branch 01/25/19 at 1327, Until Discontinu ed, Routine, Nausea and Vomiting (N/V) simethicone Yes 160mg 160 mg, Un onofre (GAS 8-26 Oral, ity of RELIEF) 18:27: PC+HSPRN, [place] chewable 57 Starting Medical tablet 160 Mon Branch mg 01/25/19 at 1327, Until Discontinu ed, Routine, Gas HYDROcodone 2019-0 Yes 2{tbl} 2 tablet, Univers -acetaminop 01-25 Oral, ity of hen (NORCO 18:27: Q6HPRN, [place] 5) 5-325 mg 56 Starting Medi [place] tablet 2 Mon Branch tablet 01/25/19 at 1327, Until Discontinu ed, Routine, Pain (scale 7-10), If uncontroll ed by Ibuprofen HYDROcodone 2019-0 Yes 1{tbl} 1 tablet, Univers -acetaminop 01-25 Oral, ity of hen (NORCO 18:27: Q6HPRN, [place] 5) 5-325 mg 56 Starting Medi [place] tablet 1 Mon Branch tablet 01/25/19 at 1327, Until Discontinu ed, Routine, Pain (scale 4-6), If uncontroll ed by Ibuprofen ibuprofen 2018-0 Yes 600mg 600 mg, Univ ers (IBU) 01-25 Oral, ity of tablet 600 18:27: Q6HPRN, [place] mg 56 Starting Medical [facility] Branch 01/25/19 at 1327, Until Discontinu ed, Routine, Pain (scale 1-3) human 0 Yes .5mL 0.5 mL, Univers papillomav 01-25 Intramuscu ity of vac,9-fariba(P 18:27: lar, [place] F) 56 ONCE-PRIOR Medical (GARDASIL 9 TO Branch (PF)) vial DISCHARGE, 0.5 mL 1 dose, Starting [facility] 01/25/19 at 1327, Until Discontinu ed, Routine, Give vaccine prior to discharge diphenhydrA 2018-0 Yes 25mg 25 mg, Univ ers MINE 01-25 Oral, ity of (BENADRYL) 18:27: Q6HPRN, [place] tablet 25 56 Starting Medica l mg [facility] Branch 01/25/19 at 1327, Until Discontinu ed, Routine, Sleep, Itching bisacodyl 2018-0 Yes 10mg 10 mg, Univer s (DULCOLAX) 01-25 Rectal, ity of suppository 18:27: QDAILYPRN, [place] 10 mg 56 Starting Medical [facility] Branch 01/25/19 at 1327, Until Discontinu ed, Routine, Constipati on docusate 0 Yes 240mg 240 mg, Unive rs calcium 01-25 Oral, ity of (SURFAK) 18:27: QDAILYPRN, [place] capsule 240 56 Starting Medi [place] mg Mon Branch 01/25/19 at 1327, Until Discontinu ed, Routine, Constipati on magnesium Yes 30mL 30 mL, Univer s hydroxide 01-25 Oral, ity of (MILK OF 18:27: QDAILYPRN, [place] MAGNESIA) 56 Starting Medica l 400 mg/5 mL [facility] Branch suspension 01/25/19 at 30 mL 1327, Until Discontinu ed, Routine, Constipati on naloxone 2019- No .4mg 0.4 mg, Unive rs (NARCAN) 01-25 Slow IV ity of injection 16:17: 16:16 Push, PRN [place] 0.4 mg 37 :37 - SEE Medical INSTRUCTIO Branch , Starting Fri01/25/19 at 1117, Until Fri01/27/19 at 1116, Routine, Analgesia Recovery, PACU acetaminoph 2019- No 1000mg 1,000 mg, Univers en ADULT 01-25 IV ity of (OFIRMEV) 16:17: 16:16 Infusion, [place] injection 37 :37 Administer Medi [place] 1,000 mg over 15 Branch Minutes, PRN - SEE INSTRUCTIO , Starting Fri01/25/19 at 1117, Until Fri01/26/19 at 1116, Routine, Pain (scale 4-6), Pain (scale 7-10), PRN once for pain scale 4-10, PACU
In dication: Perioperat january Patient nalbuphine 2019- No 5mg 5 mg, Unive rs (NUBAIN) 01-25 Intravenou ity of injection 5 16:17: 16:44 s, PRN, 1 [place] mg 37 :00 dose, Medical Starting Branch [facility] 01/25/19 at 1117, Until Discontinu ed, Routine, Itching, PACU LR 1000 mL 2019- No at 125 Univ ers + oxytocin 01-25 mL/hr, IV ity of 20 units IV 14:30: 18:28 Infusion, [place] Solution 00 :02 CONTINUOUS Medic al , Starting Branch Fri01/25/19 at 0930, Until Fri01/25/19 at 1328, BEN acetaminoph 2019- No 650mg 650 mg, U nivers en 01-25 Oral, ity of (TYLENOL) 12:30: 13:19 ONCE, 1 [place] tablet 650 00 :00 dose, Mon Medi [place] mg 01/25/19 at Branch 0730, Routine gentamicin 2019- No 5mg/kg 304.4 mg Univers 304.4 mg in 01-25 (rounded ity of NaCl 0.9% 12:22: 15:40 from 304.5 [place] (NS) 250 mL 49 :00 mg = 5 Medica l IV infusion mg/kg Branch ?60.9 kg Adjusted weight), IV Infusion, O.R. HOLDING ONCE, 1 dose, Starting 01/25/19 at 0722, Until Discontinu ed, 250 mL
Reas on for Anti-Infec tive: Surgical Prophylaxi s
Surgi [place]ritney Prophylaxi s: HOSPICE ENTRANCE ATTENDANT
Duration of therapy: within 24 hours of surgery clindamycin 2018- No 900mg 900 mg, IV Univers in 5 % 01-25 Piggyback, ity of dextrose 12:22: 14:44 O.R. [place] (CLEOCIN) 49 :00 HOLDING Medical 900 mg/50 ONCE, 1 Branch mL dose, Piggyback Starting 900 mg 01/25/19 at 0722, Until Discontinu ed, 50 mL
Facu lty member approving Restricted medication : RAMON GAUTHIER
[place] n for Anti-Infec tive: Surgical Prophylaxi s
Surgi [place]rit[place] Prophylaxi s: HOSPICE ENTRANCE ATTENDANT
Duration of therapy: within 24 hours of surgery
Restricte d use approved by: HOSPICE ENTRANCE ATTENDANT FACULTY sodium 2019- No 30mL 30 mL, Univers citrate-cit 01-25 Oral, ity of lamar acid 12:22: 14:14 PRE-PROCED [place] (BICITRA) 49 :00 URE ONCE, Medic al 500-334 1 dose, Branch mg/5 mL Starting solution 30 Mon mL 01/25/19 at 0722, Until 01/27/19 at 2359, Routine, Surgery/Pr ocedure PNV 67-iron Yes [id number] 1{each} Take 1 Univers ps-folate 2-11 Each by ity of no.1-dha 00:00: mouth [place] (VITAFOL 00 daily. Medical ULTRA) 29 Branch mg iron- 1 mg-200 mg Cap proMETHazin Yes [id number] 25mg Take 1 Univers e 25 mg 2-11 tablet by ity of tablet 00:00: mouth [place] 00 every 6 Medical (six) Branch hours as needed for Nausea and Vomiting (N/V). PNV 67-iron 2019- No [id number] 1{each} Take 1 Univers ps-folate 2-11 08-14 Each by ity of no.1-dha 00:00: 00:00 mouth [place] (VITAFOL 00 :00 daily. Medical ULTRA) 29 Branch mg iron- 1 mg-200 mg Cap proMETHazin 2018- No [id number] 25mg Take 1 Univers e 25 mg 2-11 08-14 tablet by ity of tablet 00:00: 00:00 mouth [place] 00 :00 every 6 Medical (six) Branch hours as needed for Nausea and Vomiting (N/V). sod 2017-06 Yes 1{bottl Use 1 Univers chlor-bicar 0-19 e} Bottle in ity of b-squeez 00:00: each [place] bottle 00 nostril 2 Medical (NEILMED (two) Branch SINUS RINSE times COMPLETE) daily. Use pkdv in hot shower 1 hour before bedtime acetaminoph 2017-06 Yes 1{tbl} Take 1 Un onofre en-codeine 0-19 tablet by ity of (TYLENOL-CO 00:00: mouth [place] DEINE #3) 00 every 6 Medical 300-30 mg (six) Branch tablet hours as needed for Pain (scale 4-6) (for cough). sod 2017-06 2019- No 1{bottl Use 1 Univers chlor-bicar 0-19 08-14 e} Bottle in it y of b-squeez 00:00: 00:00 each [place] bottle 00 :00 nostril 2 Medical (NEILMED (two) Branch SINUS RINSE times COMPLETE) daily. Use pkdv in hot shower 1 hour before bedtime acetaminoph 2017-06 2019- No 1{tbl} Take 1 U nivers en-codeine 0-19 08-14 tablet by ity of (TYLENOL-CO 00:00: 00:00 mouth Yusef hawley DEINE #3) 00 :00 every 6 Medical 300-30 mg (six) Branch tablet hours as needed for Pain (scale 4-6) (for cough). No known No Univers medications ity of [facility] No known No [facility] No known No Univers medications [facility] [place] [facility] Immunizations Ordered Filled Immunization Date Status Comments Sour e Immunization Name Name TDAP (ADACEL) 2018-12-08 Completed University of VACCINE 00:00:00 [facility] TDAP (ADACEL) 2018-12-08 Completed University of VACCINE 00:00:00 [facility] Branch TDAP (ADACEL) 2018-12-08 Completed University of VACCINE 00:00:00 [facility] TDAP (ADACEL) 2018-12-08 Completed University of VACCINE 00:00:00 [facility] TDAP (ADACEL) 2018-12-08 Completed University of VACCINE 00:00:00 [facility] Branch TDAP (ADACEL) 2018-12-08 Completed University of VACCINE 00:00:00 [facility] TDAP (ADACEL) 2018-12-08 Completed University of VACCINE 00:00:00 [facility] Branch TDAP (ADACEL) 2018-12-08 Completed University of VACCINE 00:00:00 [facility] Branch TDAP (ADACEL) 2018-12-08 Completed University of VACCINE 00:00:00 [facility] TDAP (ADACEL) 2018-12-08 Completed University of VACCINE 00:00:00 [facility] Branch TDAP (ADACEL) 2018-12-08 Completed University of VACCINE 00:00:00 [facility] TDAP (ADACEL) 2018-12-08 Completed University of VACCINE 00:00:00 [facility] Branch TDAP (ADACEL) 2018-12-08 Completed University of VACCINE 00:00:00 [facility] Branch TDAP (ADACEL) 2018-12-08 Completed University of VACCINE 00:00:00 [facility] TDAP (ADACEL) 2018-12-08 Completed University of VACCINE 00:00:00 [facility] TDAP (ADACEL) 2018-12-08 Completed University of VACCINE 00:00:00 [facility] Vital Signs Vital Name Observation Time Observation Value Comments Source Systolic blood 2022-03-25 01:16:00 125 mm[Hg] Univer sity of pressure [place] [facility] Diastolic blood 2022-03-25 01:16:00 97 mm[Hg] Unive rsity of pressure [place] [facility] Heart rate 2022-03-25 01:16:00 82 /min [facility]i [facility] [place] [facility] Body temperature 2022-03-25 01:16:00 36.89 Minerva Univ ersity of [place] [facility] Respiratory rate 2022-03-25 01:16:00 16 /min Univ ersity of [place] [facility] Body height 2022-03-25 01:16:00 157.5 cm [facility] [place] [facility] Body weight 2022-03-25 01:16:00 77.111 kg [facility] [place] [facility] BMI 2022-03-25 01:16:00 31.09 kg/m2 [facility] [place] [facility] Oxygen saturation in 2022-03-25 01:16:00 98 /min University of Arterial blood by [facility] Pulse oximetry Branch Systolic blood 2021-08-07 08:00:00 96 mm[Hg] Univer sity of pressure [place] [facility] Diastolic blood 2021-08-07 08:00:00 48 mm[Hg] Unive rsity of pressure [facility] Heart rate 2021-08-07 08:00:00 51 /min [facility]i [facility] [place] [facility] Respiratory rate 2021-08-07 08:00:00 18 /min Univ ersity [facility] [place] [facility] Oxygen saturation in 2021-08-07 08:00:00 99 /min University of Arterial blood by [facility] Pulse oximetry Branch Body temperature 2021-08-07 06:21:00 35.83 Minerva Univ ers[facility] [place] [facility] Body height 2021-08-07 06:21:00 154.9 cm [facility] [place] [facility] Body weight 2021-08-07 06:21:00 77.111 kg [facility] [place] [facility] BMI 2021-08-07 06:21:00 32.12 kg/m2 [facility] [place] [facility] Systolic blood 2019-12-23 19:15:00 120 mm[Hg] Univer sity of pressure [place] [facility] Diastolic blood 2019-12-23 19:15:00 80 mm[Hg] Unive rsity of pressure [facility] Heart rate 2019-12-23 19:15:00 78 /min [facility] [place] [facility] Body temperature 2019-12-23 19:15:00 36.78 Minerva Univ [facility] [place] [facility] Respiratory rate 2019-12-23 19:15:00 18 /min Univ ersity [facility] [place] [facility] Body weight 2019-12-23 19:15:00 73.301 kg [facility] [place] [facility] BMI 2019-12-23 19:15:00 30.53 kg/m2 [facility] [place] [facility] Systolic blood 2019-12-23 19:15:00 120 mm[Hg] Univer sity of pressure [place] [facility] Diastolic blood 2019-12-23 19:15:00 80 mm[Hg] Unive rsity of pressure [facility] Heart rate 2019-12-23 19:15:00 78 /min [facility] [place] [facility] Body temperature 2019-12-23 19:15:00 36.78 Minerva Univ [facility] [place] [facility] Respiratory rate 2019-12-23 19:15:00 18 /min Univ ers[facility] [place] [facility] Body weight 2019-12-23 19:15:00 73.301 kg [facility] [place] [facility] BMI 2019-12-23 19:15:00 30.53 kg/m2 [facility] [place] [facility] Systolic blood 2019-02-05 20:17:00 127 mm[Hg] Univer sity of pressure [place] [facility] Diastolic blood 2019-02-05 20:17:00 82 mm[Hg] Unive rsity of pressure [facility] Heart rate 2019-02-05 20:17:00 75 /min [facility] [place] [facility] Body temperature 2019-02-05 20:17:00 36.78 Minerva Univ ersity [facility] [place] [facility] Respiratory rate 2019-02-05 20:17:00 18 /min Univ ersity [facility] [place] [facility] Body weight 2019-02-05 20:17:00 71.923 kg [facility] [place] [facility] BMI 2019-02-05 20:17:00 29.96 kg/m2 [facility] [place] [facility] Systolic blood 2019-01-26 13:00:00 94 mm[Hg] Univer sity of pressure [facility] Diastolic blood 2019-01-26 13:00:00 55 mm[Hg] Unive rsity of pressure [facility] Heart rate 2019-01-26 13:00:00 75 /min [facility] [place] [facility] Body temperature 2019-01-26 13:00:00 36.44 Minerva Univ ers[facility] [place] [facility] Respiratory rate 2019-01-26 13:00:00 19 /min Univ ersity [facility] [place] [facility] Oxygen saturation in 2019-01-26 13:00:00 96 /min University Arterial blood by [facility] Pulse oximetry Branch Body height 2019-01-25 12:09:00 154.9 cm [facility] [place] [facility] Body weight 2019-01-25 12:09:00 80.559 kg [facility] [place] [facility] BMI 2019-01-25 12:09:00 33.56 kg/m2 [facility] [place] [facility] Systolic blood 2019-01-20 18:54:00 125 mm[Hg] Univer sity of pressure [facility] Diastolic blood 2019-01-20 18:54:00 79 mm[Hg] Unive rsity of pressure [facility] Heart rate 2019-01-20 18:54:00 103 /min [facility] [place] [facility] Body temperature 2019-01-20 18:54:00 36.5 Minerva Univ ers[facility] [place] [facility] Respiratory rate 2019-01-20 18:54:00 18 /min Univ ers[facility] [place] [facility] Body height 2019-01-20 18:54:00 154.9 cm [facility] [place] [facility] Body weight 2019-01-20 18:54:00 80.854 kg [facility] [place] [facility] BMI 2019-01-20 18:54:00 33.68 kg/m2 [facility] [place] [facility] Systolic blood 2019-01-13 19:48:00 111 mm[Hg] Univer sity of pressure [place] [facility] Diastolic blood 2019-01-13 19:48:00 69 mm[Hg] Unive rsity of pressure [facility] Heart rate 2019-01-13 19:48:00 90 /min [facility] [place] [facility] Body temperature 2019-01-13 19:48:00 36.22 Minerva Univ [facility] [place] [facility] Respiratory rate 2019-01-13 19:48:00 18 /min Univ ers[facility] [place] [facility] Body height 2019-01-13 19:48:00 154.9 cm [facility] [place] [facility] Body weight 2019-01-13 19:48:00 80.91 kg [facility] BMI 2019-01-13 19:48:00 33.70 kg/m2 [facility] Systolic blood 2019-01-05 21:23:00 122 mm[Hg] Univer sity of pressure [facility] Diastolic blood 2019-01-05 21:23:00 85 mm[Hg] Unive rsity of pressure [facility] Heart rate 2019-01-05 21:23:00 124 /min [facility] Body temperature 2019-01-05 21:23:00 36.39 Minerva [facility] Respiratory rate 2019-01-05 21:23:00 16 /min [facility] Body height 2019-01-05 21:23:00 154.9 cm [facility] Body weight 2019-01-05 21:23:00 79.55 kg [facility] BMI 2019-01-05 21:23:00 33.14 kg/m2 [facility] Procedures Procedure Date / Time Performing Clinician Source Performed CONSENT/REFUSAL FOR 2022-03-25 01:12:21 Doctor Unassigned, No Un [facility] DIAGNOSIS AND TREATMENT Name [facility] ASSIGNMENT OF BENEFITS 2022-03-25 01:12:01 Doctor Unassigned, No [facility] Name [facility] CT ABDOMEN PELVIS W 2021-08-07 07:13:50 Clifton Bardales [facility] POCT TEST 2021-08-07 07:07:00 Clifton Bardales [facility] URINALYSIS 2021-08-07 07:06:00 Clifton Bardales [facility] LIPASE 2021-08-07 06:36:00 Clifton Bardales [facility] COMP. METABOLIC PANEL 2021-08-07 06:36:00 [id number] CBC WITH DIFF 2021-08-07 06:36:00 Clifton Bardales [facility] NOTICE OF PRIVACY 2021-08-07 06:11:00 Doctor Unassigned, No [facility] PRACTICES Name [facility] CONSENT/REFUSAL FOR 2021-08-07 06:10:42 [facility] DISCLOSURE AND CONSENT, 2019-12-23 05:01:00 Doctor Unassigned, N o [facility] MEDICAL AND SURGICAL Name Medical Bra nch PROCEDURES REFERRAL- 2019-12-08 05:01:00 Doctor Unassigned, No [facility] REQUEST/RESPONSE [facility] CBC WITH DIFFERENTIAL 2019-01-26 09:01:00 Kaykay Angel [facility] SURGICAL PATHOLOGY EXAM 2019-01-25 15:15:00 Abrahan [facility] VENOUS CORD GAS 2019-01-25 15:05:00 Maximo Su [facility] SECTION 2019-01-25 14:05:00 Abrahan [facility] TUBAL LIGATION 2019-01-25 14:05:00 Abrahan [facility] CBC WITH DIFFERENTIAL 2019-01-25 13:00:00 [facility] 2019-01-25 13:00:00 Maximo Su [facility] GALV ONLY - SYPHILIS 2019-01-25 13:00:00 Maximo [facility] IGG/IGM [facility] TYPE AND SCREEN 2019-01-25 12:29:00 Maximo Su [facility] RHO (D) IMMUNE GLOBULIN 2019-01-25 12:29:00 Kaykay Angel Un iversity of [facility] HOSPITAL ADMISSION 2019-01-25 05:01:00 Doctor Unassigned, No Uni [facility] POCT URINALYSIS 2019-01-20 20:18:00 Na [facility] POCT URINALYSIS 2019-01-13 19:50:00 Na [facility] POCT URINALYSIS 2019-01-05 21:38:00 Na Almaguer [facility] CBC WITH DIFFERENTIAL 2019-01-05 21:35:00 Na [facility]uer [facility] GROUP B STREPTOCOCCUS BY 2019-01-05 21:35:[address] [facility] STERILIZATION CONSENT 2018-12-08 05:01:00 Doctor Unassigned, No [facility] FORM Name [facility] Encounters Start End Encounter Admission Attending Care Care Encounter Source Date/Time Date/Time Type Type Clinicians Facility Department ID 2022-12-26 2022-12-26 Outpatient [facility] [id number] Gerardo 13:40:43 13:40:43 0727 F Asbury 2022-12-23 2022-12-23 Outpatient [facility] [id number] Gerardo 09:01:11 09:01:11 0724 F Asbury 2022-03-24 2022-03-24 Emergency [facility] [id number] Univers 20:20:00 21:59:00 MANDEEP [facility] 2022-03-24 2022-03-24 Emergency [facility] [id number] Univers 20:20:00 21:59:00 Mandeep BLAIR [id number] [facility] 4.2.7.2.686 [facility] [id number] [address] 2021-08-07 2021-08-07 Emergency X [facility] E[facility] [id number] Univers 00:25:00 02:33:00 CLIFTON [facility] 2021-08-07 2021-08-07 Emergency [facility] [id number] Univers 00:25:00 02:33:00 Clifton BLAIR [id number] stiven [facility] 4.2.7.2.686 [facility] [id number] [address] 2019-12-23 2019-12-23 Office [facility] [id number] 14:09:22 14:39:22 Visit Matilda Blair [id number] [place] 4.2.7.2.686 Professio [id number] [address] 2019-12-23 2019-12-23 Office Samm [facility] [id number] Univers 14:09:22 14:39:22 Visit Matilda Blair [id number] i ty of [place]7.2.686 [place] Profess[place] [phone] Me dical [address] 2019-12-23 2019-12-23 Outpatient R SAMM [facility] [id number] [facility] 14:15:00 14:15:00 MATILDA saleem [facility] 2019-12-23 2019-12-23 Orders Doctor JOSUE [id number] 00:00:00 00:00:00 Only Unassigned, TERE 350.1.13.10 [facility] 4.2.7.2.686 [id number] [id number] 2019-12-23 2019-12-23 Orders Doctor JOSUE [id number] Univers 00:00:00 00:00:00 Only Unassigned, TERE 350.1.13.10 ity of [facility] 4.2.7.2.686 Charlie as [phone] [address] 2019-12-08 2019-12-08 Orders Doctor JOSUE [id number] Univers 00:00:00 00:00:00 Only Unassigned, TERE 350.1.13.10 ity of [facility] 4.2.7.2.686 Charlie as [phone] [address] 2019-02-05 2019-02-05 Nurse Visit, Ang-Rmchp Nurse [facility] [id number] .[id number] Univers 15:08:48 15:44:35 Visit Pooja Elias HOSPICE ENTRANCE ATTENDANT [id number] ity of REGIONAL 4.2.7.2.686 Charlie as MATERNAL [phone] Med ical & CHILD 107 [facility] 2019-01-25 2019-01-26 Hospital JOSUE Kc [id number] [place] [address] 06:46:00 16:50:00 Encounter Di CARRANZA 350.1.13.10 ity of HOSPITAL 4.2.7.2.686 Charlie as [phone] [facility] [address] 2019-01-25 2019-01-25 Orders Doctor JOSUE [id number] Univers 00:00:00 00:00:00 Only Unassigned, TERE 350.1.13.10 ity of [facility] 4.2.7.2.686 Charlie as [phone] [facility] [address] 2019-01-20 2019-01-20 Routine Elias, SDMB [id number] [facility] 13:49:38 15:18:45 Roshunda R HOSPICE ENTRANCE ATTENDANT 350.1.13.10 ity of Visit [facility] 4.2.7.2.686 Charlie as MATERNAL [phone] [facility] & CHILD [address] [place] [address] 2019-01-13 2019-01-13 Routine Elias, SDMB 1.2.840.114 [id number] [facility] 14:43:51 15:06:50 Roshunda R HOSPICE ENTRANCE ATTENDANT 350.1.13.10 ity of Visit [facility] 4.2.7.2.686 Charlie as MATERNAL [id number] [facility] & [address] 2019-01-05 2019-01-05 Routine Akinbrendenmorgan, [facility] [id number] Univers 16:07:48 16:35:53 Na C HOSPICE ENTRANCE ATTENDANT 350.1.13.10 ity of Visit [facility] 4.2.7.2.686 Charlie as MATERNAL [phone] [facility] & CHILD [address] [place] [address] Results Test Description Test Time Test Comments Results Result Comments Source LIPID PANEL 2022-12-27 05:14:22 Test Item Value Reference Range Interpretation Comme nts CHOLESTEROL (test code = 2210) 140 MG/DL <200 TRIGLYCERIDES (test code = 2232) 83 MG/DL <150 HDL CHOLESTEROL (test code = 34 MG/DL >39 L 2220) CALC LDL CHOL (test code = 2237) 89 MG/DL <100 NOTE: CALCULATED LDL IS BASED ON [place] METHOD WHICHINCLUDES A DJUSTABLE TRIGLYCERIDE:VL DL CHOLESTEROL RATIO.THIS FACT OR VARIES BY MEASURED TRIGLY CERIDE AND NON-HDLCHOLESTE ROL CONCENTRATIONS WITH INCREASED CALCULATED LDL SEENIN HIGHER T RIGLYCERIDE OR LOWER NON-HDL S PECIMENS. FOR MOREINFORMATION , SEE CLIENT ANNOUNCEMENT AT [email or web address] RATIO LDL/HDL (test code = 2.62 RATIO <3.22 2237) COMPREHENSIVE METABOLIC [id number] 05:14:22 Test Item Value Reference Range Interpretation Comments GLUCOSE (test code = 120 MG/DL 70-99 H 2216) BUN (test code = 11 MG/DL 6-20 2207) CREATININE (test 0.92 MG/DL 0.60-1.30 code = 221) eGFR (2020 CKD-EPI) 84 >60 (test code = 63156) ML/MIN/1.73 CALC BUN/CREAT (test 12 RATIO 6-28 code = 2235) SODIUM (test code = 138 MEQ/L 414-129 7741) POTASSIUM (test code 4.1 MEQ/L 3.5-5.4 = 2227) CHLORIDE (test code 105 MEQ/L 95-107 = 221) CARBON DIOXIDE (test 24 MEQ/L 19-31 code = 220) CALCIUM (test code = 9.1 MG/DL 8.5-10.5 2208) PROTEIN, TOTAL (test 6.7 G/DL 6.1-8.3 code = 2229) ALBUMIN (test code = 4.3 G/DL 3.5-5.2 2200) CALC GLOBULIN (test 2.4 G/DL 1.9-3.7 code = 2240) CALC A/G RATIO (test 1.8 RATIO 1.0-2.6 code = 2234) BILIRUBIN, TOTAL 0.4 MG/DL See_Comment [Automated message] (test code = 2207) The [employer] Lamsa which generated this result transmitted ref erence range: <=1.2. T he reference range was not used to int erpret this result as normal/abnormal . ALKALINE PHOSPHATASE 71 U/L 40-114 (test code = 2204) AST (test code = 26 U/L 9-40 2217) ALT (test code = 43 U/L 5-40 H UNLESS OTH ERWISE 2219) INDICATED, ALL TESTING PERFORM ED AT [facility], [address] [place] [address] POLO VU DIRECTOR: Mary Kay NIX KYLE NUMBER [id number] CAP ACCREDITATION N O. [id number] HEMOGLOBIN [id number] 02:28:51 Test Item Value Reference Range Interpretation Comments HEMOGLOBIN A1c (test code = 24714) 5.2 % 4.2-5.6 [id number] 04:44:50 Test Item Value Reference Range Interpretation Comments TESTOSTERONE (test 76 NG/DL See_Comment H NOTE: TO KENAN code = 2830) TESTOSTERONE SAY SENSITIVITY IS 12 NG/DL. TO DETER MINE NORMAL VS. SUBN ORMAL TESTOSTERONE IN CHILDREN AND WO MEN, CONSIDER TESTIN G WITH ULTRASENSITIVE TESTOSTERONE. U NLESS OTHERWISE INDIC ATED, ALL TESTING PER FORMED AT [facility], [address] [place] [address] LABORATOR Y DIRECTOR: Mary Kay NIX KYLE NUMBER [id number] CAP ACCREDITATION N O. [id number] [Autom ated message] The sy stem which generated this result transmit gene reference range : <=55. The reference r doug was not used to int erpret this result as normal/abnormal . [id number] 03:36:57 Test Item Value Reference Range Interpretation Comments ESTRADIOL (test 52.7 PG/ML SEE BELOW EXPE CTED VALUES FOR code = 2505) ESTRADIOL FOR F EMALES >=18 YEARS FO LLICULAR . . . . . . . . . . . . . PG/ML 12.4-233.0 OVUL ATION. . . . . . . . . . . . . . PG/ML 41.0-398.0 LUTE AL PHASE . . . . . . . . . . . . PG/ML 22.3-341.0 POST MENOPAUSAL SUPPLEMENTED/NO N-SUPP . PG/ML <138.0/<20.0 N OTE: TO DETERMINE FATOUMATA L VS. SUBNORMAL ESTRA DIOL IN POSTMENOPAUSAL FEMALES, CONSIDER ULTRAS ENSITIVE ESTRADIOL (CPL ORDER CODE 5678). METHODOL OGY IS KIP SHYLA ELECTROCH EMILUMINESCENT IMMUNOASSAY WIT H A LIMIT OF DETECTION OF 17 PG/ML. FSH + LH [id number] 03:36:57 Test Item Value Reference Range Interpretation Comments FOLLICLE STIM HORMONE 6.4 IU/L SEE BELOW EXPECTED VALUES (test code = 2700) FOR FSH F OR FEMALES >17 YEARS F OLLICULAR 3.5-12.5 IU/L M ID-CYCLE PEAK 4.7-21.5 I U/L LUTEAL PHASE 1. 7-7.7 IU/L POSTMENOPA USAL 25.8-134.8 IU/L LUTEINIZING HORMONE 7.7 IU/L SEE BELOW EXPECTED VALUES (test code = 2776) FOR LH FO R FEMALES >17 YEARS M ALES FEMALES >=18 YE ARS 1.8-8.6 IU/L FO LLICULAR 2.4-12.6 IU/L M ID-CYCLE PEAK 14.0-95.6 IU/L LUTEAL PHASE 1. 0-11.4 IU/L POSTMENOP AUSAL 7.7-58.5 IU/L [id number] 03:36:57 Test Item Value Reference Range Interpretation Comments PROLACTIN (test 7.4 NG/ML 5.0-37.0 NOTE: Metho dology is Kip code = 2800) Shyla Electroch emiluminescence Immunoassay (EC KYLE). Values obtained with d ifferent assays/manufact urers cannot be used interchang eably. Results should not be u sed as sole basis to establ vernell the presence or abs ence of malignancy. TSH, THIRD [id number] 03:36:57 Test Item Value Reference Range Interpretation Comments TSH, THIRD GENERATION (test code 1.410 UIU/ML 0.400-4.100 = 2821) POCT [id number] 07:07:00 Test Item Value Reference Range Interpretation Comments POCT PREG (test code = 1605) negative On board controls acceptable with present C Line (test code = 3574) POCT PREG LOT # (test code = 3575) [id number] POCT PREG TEST DATE (test 07/30/2022 code = 3576) Lab Interpretation (test code = Normal 71134-5) [facility] (89306)2021-08-07 07:02:00 Test Item Value Reference Range Interpretation Comments NA (test code = 137 mmol/L 135-145 9743174792) K (test code = 4.0 mmol/L 3.5-5.0 6013739489) CL (test code = 101 mmol/L 98-108 9186397252) CO2 TOTAL (test code = 25 mmol/L 23-31 4769905698) AGAP (test code = 2-16 9392037059) BUN (test code = 11 mg/dL 7-23 5191537139) GLUCOSE (test code = 104 mg/dL 70-110 9260136637) CREATININE (test code = 0.72 mg/dL 0.50-1.04 0855784170) TOTAL BILI (test code = 0.5 mg/dL 0.1-1.0 6552638571) CALCIUM (test code = 9.3 mg/dL 8.6-10.6 0669160429) T PROTEIN (test code = 7.5 g/dL 6.3-8.2 7702753698) ALBUMIN (test code = 4.6 g/dL 3.5-5.0 8997074413) ALK PHOS (test code = 95 U/L 34-122 9110459528) ALTv (test code = 44 U/L 5-35 H 1742-6) AST(SGOT) (test code = 39 U/L 13-40 9407808477) eGFR (test code = mL/min/1.73m2 9268631794) ADAN (test code = ADAN) Association of Glomerular Filtration Rate (GFR) and Staging of Kidney Disease* + --+ --+ ------+| GFR (mL/min/1.73 m2) ?| With Kidney Damage ?| ?Without Kidney Damage+ --------+ --------+ +| ?>90 ?| ?Stage one ?| ? Normal ?+ ---+ ---+ -------+| ?60-89 ?| ?Stage two ?| ? Decreased GFR ? + --+ --+ ------+| ?30-59 ?| ?Stage three ?| ? Stage three ? + --+ --+ ------+| ?15-29 ?| ?Stage four ? | ? Stage four ?+ ---+ ---+ -------+| ?<15 (or dialysis) ? ?| ?Stage five ? | ? Stage five ?+ ---+ ---+ -------+ *Each stage assumes the associated GFR level has been in effect for at least three months. ?Stages 1 to 5, with or without kidney disease, indicate chronic kidney disease. Notes: Determination of stages one and two (with eGFR >59mL/min/1.73 m2) requires estimation of kidney damage for at least three months as defined by structural or functional abnormalities of the kidney, manifested by either:Pathological abnormalities or Markers of kidney damage (including abnormalities in the composition of the blood or urine or abnormalities in imaging tests). Lab Interpretation Abnormal (test code = 38765-4) [facility] ResourcesLIPASE2022-03-08 07:01:39 Test Item Value Reference Range Interpretation Comments LIPASE (test code = 6528922295) 66 U/L 0-220 Lab Interpretation (test code = Normal 69433-6) [facility] WITH MCRM0373-12-12 06:52:35 Test Item Value Reference Range Interpretation Comments WBC (test code = See_Comment [Automated 7402-2) message] The sy stem which generated this result transmitted reference range : 4.30 - 11.10 10*3/?L. The reference range was not used to interpret this result as normal/abnormal . RBC (test code = See_Comment [Automated 176-8) message] The sy stem which generated this result transmitted reference range : 3.93 - 5.25 10*6/?L. The reference range was not used to interpret this result as normal/abnormal . HGB (test code = 13.7 g/dL 11.6-15.0 718-7) HCT (test code = 40.1 % 35.7-45.2 4544-3) MCV (test code = 84.2 fL 80.6-95.5 787-2) MCH (test code = 28.8 pg 25.9-32.8 785-6) MCHC (test code = 34.2 g/dL 31.6-35.1 786-4) RDW-SD (test code = 36.4 fL 39.0-49.9 L 75787-0) RDW-CV (test code = 12.0 % 12.0-15.5 788-0) PLT (test code = See_Comment [Automated 777-3) message] The sy stem which generated this result transmitted reference range : 166 - 358 10*3/ ?L. The reference r doug was not used to interpret this result as normal/abnormal . MPV (test code = 9.2 fL 9.5-12.9 L 72667-2) NRBC/100 WBC (test See_Comment [Automat ed code = 0841170696) message] The system which generated this result transmitted reference range : 0.0 - 10.0 /100 WBCs. The refer ence range was not u sed to interpret th is result as normal/abnormal . NRBC x10^3 (test code <0.01 See_Comment [Auto mated = 0624500417) message] The s ystem which generated this result transmitted reference range : 10*3/?L. The reference range was not used to interpret this result as normal/abnormal . GRAN MAT (NEUT) % 58.9 % (test code = 770-8) IMM GRAN % (test code 0.30 % = 6324543826) LYMPH % (test code = 33.4 % 736-9) MONO % (test code = 6.5 % 5905-5) EOS % (test code = 0.4 % 713-8) BASO % (test code = 0.5 % 706-2) GRAN MAT x10^3(ANC) 5.73 10*3/uL 1.88-7.09 (test code = 5729414350) IMM GRAN x10^3 (test 0.03 10*3/uL 0.00-0.06 code = 6509323542) LYMPH x10^3 (test code 3.25 10*3/uL 1.32-3.29 = 731-0) MONO x10^3 (test code 0.63 10*3/uL 0.33-0.92 = 742-7) EOS x10^3 (test code = 0.04 10*3/uL 0.03-0.39 711-2) BASO x10^3 (test code 0.05 10*3/uL 0.01-0.07 = 704-7) Lab Interpretation Abnormal (test code = 69980-3) [facility] [id number] 16:47:00 Test Item Value Reference Range Interpretation Comments Case Report (test code Surgical = [id number]) Pathology?Case: [id number]? Authorizing Provider:?Ramon Gauthier MD?Collected:? 01/25/2019 1015?Ordering Location:? Labor and Delivery ([facility])?Received:?01/25 1429?Pathologist:? Favian Hammer MD?Specimens:? A) - FALLOPIAN TUBE, RIGHT? ? B) - FALLOPIAN TUBE, LEFT? Final Diagnosis (test q2zflEJxRHEgo7fhUKSoaN code = 8013703995) FuZzEwMzNcZnRuYmpcdWMx LIwzglPiPQydd3FcC7FiSx AwMFxhbnNpXGRlZmxhbmcx TALlBZJ4bgKaVHHtJXujAN KbCXmcSn5mrBYzzTjfTfJb OXCwl5enquAKlxfjlTd1m3 toRSDoRmB9nSVtLPbnB2lw yxGsfSAfFZXhPFt8wI31AB LuvR8nyOBvDMsixoNhZMjm ccApttOnLsv5SIReV4ckDX GuIXAfN8ZcKM9eWILbEza1 DMG3MEU9eNqam4H6aQAlkU BafYguBlHzJdDxZWRBs6Ld DIh2yKnrV6WgDBCgZjA3vE QgUGFyYWdyYXBoIEZvbnQ7 kJ32XPxcgjX6yOXxm5Pqy2 0gl864tJ4jkOKeYXA8XNBt PHZsxQGbEPAjZTS1VUAvgO WtS7qwCRgzTB1nmymiPLW6 MFxtYXJndDcyMFxtYXJnYj WfqNHnTKRxnKqzUTuas806 JBQ9QrZlWD7hE8Wld8O4fX 9maXRcZGVmdGFiNzIwXGZv jo2aoUHwPUolc6XfPLB3ky S0mMZfiYPqVWPeLF17Crxi o9VhWqegYJV7IOPmfwMel8 Mhb2hpEfJmibOyK0teH2Rm ZHJoZWFkXHBnYnJkcmZvb3 Ykx9BnfPRnzTi1y2dlVCUv XQRhoJmml3bcRSX0GEPkA3 P5mAZfz0aqDBznOGWgcGH0 weLnDYDfgNVdS9HcxJ8iPO ipQU8rgzs8l5cpPjPyLA8j lfipr5nwUPzeHCZcLOJ8Tp ZjLGWyc9HxmadvKkRzg9Tu iZUyUAscK79he165USPtol NdR8jnrQTlifxutMXbpghq MFxmczIwXHFsXHBsYWluXG OtFACyXcZtxZhzrS3zIsCz UoPnKOpqGMKkpKzxaP6yIm WbAwJqYDUSRzOLQJvZU9MC LG1qCXMKBEyxWvjAOPUhXM JTY91SEeBCXSHJLRFJP2MK T897GDFdzbDnZMSmKCKHVC vgK0QSB2GlK6EXAStCAsAX GjFJSViCC6JDGU0hHKLHAP BJREVOVElGSUVEXHBhclxw YLBkJy7sHqGENV5BLVQKCA ZLJxKgOYbABgBlROBKY08F FfFDXMAJDJGGZ4SXS616GN CtqbGwIVFaFTJGOFqzX4YD N7LdJ0VMGVrLUxQLPvUGJC dQR3RQKR9tHSDSKGJZXICK VElGSUVEXHBsYWluXGYwXG ZzMjBccGFyXHBhclxwbGFp blxmMVxmczIyXGxhbmcxMD UoHSfnH8dyKwXzCJXrpJgh ZPpex4HvYWVpAEEdBFjsbl JlKJIemBObYTBWcuRnf4Bf CXUDKTSxRZ0uUs1jBOT7EH K3UsUwJICUXTEsVYdiUGJq XGZzMjBccGFyfXtccnRmMV imm8QuZ1NnYjHsGWudcmSv VUAoNcexftqnQOEkCWN6kv CfEEYpMSiiGADfGBzuMw9x kUOezUocBoFrCBDlm8gdma DVVGjlJlJmN864RVZhWMvf v1khu3AcPZSefGXue4Y7BK UWogipnTx6n2ilHnHgEfE2 uETyBDogW9grcoNoaAJlY3 GweHAgfEy0kQvvI50ol9I7 HddwA2tmYEMoMZJrH4IoGE 2vEJFnGik2FQT2OLP9ABMs LMIqQ7VeMR0qETBatIQcQK w3p7uigXlpYHWuXVM4r4oc BJmgndE0VH7ckd1mhIo2d5 xjczEgRGVmYXVsdCBQYXJh J5CucFhbAf5sdEb7eAhzXn kiMEB7Trv0JO5adj86mli2 wPhaXPBntfxdZfO3DMrtQN YtcjuuYQn3ZBpyHPGmsFH2 SNDioKQdU8IvTSFxGW6grx e6CKZ6EGzlMGRfNrA2CCGj bRVmNBNqqArrJKjpj302QI N3BiXuMT4vC4Oan3J2hS4w aXRcZGVmdGFiNzIwXGZvcm 9ihKSjDLohu5TxZGC8tbS3 hLOhvVIuIPLwAW51Nyhje7 YkGposWRZ4PYAjmaAhz8Uk x4bfSeDbkrJiE7jdM9IxTC IhNGHpLRUrErKjmcSgp4Gm s9BgqBIriUg9q5trZTFyLH QpkZixm9zqTLP4IUBkC9W9 lZXzo7ppRWzfJJOknUP1yi Q6NRJheQQqZ5UvwD8tXFSz UA9bdil9p2llIWW6RTztBV YwMeV2ynL7OZHmePZhMOHx tJetFDthg442KTR3LsEkRC Jxl2DkS2YnuTnhJ81ejHwq Q49fZCWkfQffiR3qlLxbuO 5cZjBcZnMyNFxxbFxwbGFp blxmMVxmczIwXGxhbmcxMD JrOLzkV6rzWuLyAQHcsLxz PNecz1DiALJcBNHmKnybab IwXHBhciBJIGhhdmUgcGVy j03rAGhhqRMdXQEaJTmkLL XzlWkjp5XmW2clZB9cP6Vf aWRlcyBhbmQgYWdyZWUgd2 d3bREvwSdde2DwcHIjMF16 hwPfOGTiCES2EPXsz6tdYR 71rhxnNeIefQ62eiEsedSb JLKim3vnG7gczUWsv0Lli2 SflcDxFSrax9NuUM3zmUAc rkqujWV2PZEbxBFiylSqjt X4hUlvHYJcyH2hnR9gzYru gI3fUbMdOvZtHPpyBD1hSI WmF1eblMLxNTTdJSKmQ6xc HcQokH1bjWnyRrzzmjC0GN cn19 Clinical Information MPDPS (test code = 0768217703) Gross Description (test n3tqnDPqXCVhgQVqGeFeDA code = 1709852732) ToMZKpv2cpSIGvsOFlOuOb MzNcZnRuYmpcdWMxXGRlZm Qcb2dca585nQKvn7mgMIUn BiV5kYIcVTUwmBPyX488DP BwRApgp0joo0AtDXUbbHBa f6A9UNPJjevrdZl3lSjhN1 3tv9E0UgzkF0irQLJsMTmp CDOxNBrklPCtMEE2EFRmQU Q1BTrotmCyvwW5GQcpdJFt AwN2DPx5r0incHbmUQLfXN E4q6tuHBwkdjIvOR3eue2x zUk3f6sfgyEdSKUlYAOqfS SRMZLlE7UvsRkzCl3vnQb8 jTxtYlunKCW8Rst6SX0mqg 98mci3qRfyJLCougvcFcE4 HPduPUMndnqjSLn9CUtiJI XfuXXaKDLtbSCeA2KkKCge NL0mshh4TdPbLA3mvguqZP aqICLiPFD6KeNjJBXyx5Ql stwqYbHdwf2ejn41EEM5q0 VvaCvjTKT4LHP9QpOcGc0r qUOlNHMuXG9zCjLkmGMgBK Kcqy78jLpeOPdtimByfW5q FqVzRE3odHqxe67zHPFhIA 2iaW4vng6lwuOyRZrscYHf nHF1ofdjYEC3OHVbwaVxa2 HgWCY6gi0sfHOpaSmqxvTj eHUvFVrbC1SeNOSko576BV OvI1AoTCHwh6C3yfFtBrZr GCMmuWI3viC6UCYkQWm2oQ JjtzD2inGbdCJuN1kfjT0y JMueDF4vxlugr9psCSJ1OT ehIRTfmIP0wjpfKKnmNNRq VyP6hcPcyBLeBJCkjIdpSA yab305VUF1VuQuCERye2Hv Y1TtgGyuB87zlPlkL96zSF PkvJzbmQ3fsGnunP7vVwLl ZnMyMFxwYXJkXHNzcGFyYW B4bDJnoqBuw4ZbQTSlv6sa MvWhh9ojwTc2EApyvCPkHC DzaAqqb5vjW8VdtBDyHCAc YWluXGYwXGZzMjBccGxhaW 2cZnIxHmNrAFuhFF3dZUGw K2pulOQbCYHlAGKqV7weNk AnaI1ukQggTZkkCwFdLfYz ZStjdDBksLWGwKLbfW0bhz xwbGFpblxmMVxmczIwICBB IFxwbGFpblxmMVxmczIwXG ulrvoxNXXqKGzjE3grLoVe DOUhjXpjBJuxq0UxTMRvTR McWOmnvsExNCe0rtJeCYuk LTWhJ2HblaLlQRkdGHYily 1hbGluIGxhYmVsbGVkIHdp dGggdGhlIHBhdGllbnRccG snzD8eMcKgRiLnJMdqPP4z XYIkB4szpGXrYKCoOZGhL4 ewGjTbaH4xjKxgBGxjFpKy IhHoODmqgNFjoVv4KBGbBk BcJzkyXHBsYWluXGYxXGZz MjBcbGFuZzEwMzNcaGljaF adFYdfQuJiMIEpOLeyX8kw DlVcE5ScASVfKiHydNLbI3 cyqnWbFH5fXGLFWLYdbX2x ZXIgXHBsYWluXGYxXGZzMj BcbGFuZzEwMzNcaGljaFxm QHqaEhMzIQJdQEugG7xgPd CgW3OfKNBgIqZyyAMmY4ch cVwsCyYoJWp7D8yxdNQfgr xmMVxmczIwIGZhbGxvcGlh bsF2yDGaJFQxhXogaLoohB FpblxmMVxmczIwXGxhbmcx MRYsCAolU0czVjXmVIGhtB hsFZnmp8QvSRLyZQGuYPjt lhHiMSg3jhWuVNW9PfDxNL pmOHIwpIfkdR5kKyPqHsBn SSqsEU5lORNhD9vurTTnYI LhHTHsQ4unGiYaiT5saCbj MVxjZjFcZnMyMFxsdHJjaC FgCR2qCLUvfiYyh8WrNC9e IFxwbGFpblxmMVxmczIwIG EsxRHknHizbaWujE0sEDXi CuPjxIwbf2SsSLReSMisKE YxXGZzMjBcbGFuZzEwMzNc aGljaFxmMVxkYmNoXGYxXG fgF3daWdRxQ9AhDBHsGgLe bNVnP0itJFzanMdolX7uIk BxFtOnPPBfKugyT94czC7e eQMbZ2OsOPWdEJOiQxG7UW NqLHsnOUJrCQ1feUSsSDLo YWluXGYxXGZzMjBcbGFuZz EwMzNcaGljaFxmMVxkYmNo CIWdOHuqP4ltLvJnR3LgSZ JzCsQgdQPdG3wiQN4zFHky IHNwZWNpbWVuXHBsYWluXG UkPCBaNmAkDJevOGVxF3Lv g80iHVD3ehKsZDUsBVhmRZ 4yhM1fNN0dqejtDpwnFQIb tlEqsP11LRr9lOEyQaZJRE UcGKYftpPenIq6CIIqGJX5 qO9mrnDpjtRrp0GtbSp0iU VkIGluXHBsYWluXGYxXGZz MjBcbGFuZzEwMzNcaGljaF wpXCufNvOvLNFuPUufR6ko UeSlP0ZrIVBvGpTklGMjR3 ggIFxwbGFpblxmMVxmczIw IEExXHBsYWluXGYxXGZzMj BcbGFuZzEwMzNcaGljaFxm VAfiGrQmIYHeKJvhZ3zgBp MtQ5UbYLIaXxIicTCyI9am LlxwYXJccGFyZFxwbGFpbl xmMFxmczIwXHBsYWluXGYx XGZzMjBcbGFuZzEwMzNcaG ljaFxmMVxkYmNoXGYxXGxv L9tnIlAiO4QuFWQiXuSerI AtV2zxW7KvP7bnBZ1gOFHk YWluXGYxXGZzMjAgQlxwbG FpblxmMVxmczIwXGxhbmcx FKSrHDuoA9rkJtNiZQLwnD gvVNmlq7IoITFoCWOtAGew ypPnJNt9jzMhICYdplMeYF QiaFJfMDTnlzSow5LsDKtp hgSwGCTwgWqiMVU1pOQqBU HlQJUtWPOrEP65WDLxVHhw XGYxXGZzMjBcbGFuZzEwMz NcaGljaFxmMVxkYmNoXGYx DNkvB2ryJvYhW4VeGTCgYa OtnMWoY5iocUprFKjzQAg7 MlxwbGFpblxmMVxmczIwXG minxbeMTSyFLifQ7ffHnEt CVBtlDfmHRmwq5QpMXVoNT FtTRpscyDiBAv9tzTuMRAm bmFtZSwgVUggbnVtYmVyIF xwbGFpblxmMVxmczIwXGxh eqbzBSWaOMbvB5vtZgWlMO GfcOxdYFlsf6DlYGItOYEx EHrlduYgVCn7xwNpBTR7Lk ZyIOujNZQcfSeyuL7aWeJp ItQyYNBaYDwvt6QwGE5meQ ViZSwgbGVmdFxwbGFpblxm MVxmczIwXGxhbmcxMDMzXG fkG0qlOeLdVGYhfIhjRBir d7UiBGIcEXLmKPsmajZjLA p8tbDcSFZ2JwRyUZqwQJTo mCclpU4dRmVyEgItFUeyTN 3gAMLfT7pggMLpGEGtOFQy A3lvMzBzpU3ncEpzOJneBp UdNjCbEQlkjBCdaPJbSF8w FTIluaThq9YjHV8rLXjuzS FpblxmMVxmczIwIGEgdHVi iJuexwUegN0hOAVvPoSokT hpy5BdZNXnQPhxBBNxDZQb MjBcbGFuZzEwMzNcaGljaF lrWXojGlEkAVYnQKkaQ9zt QnKeT9DyMDBmOwWxzYVpI5 mvJOxufBmhxX4uHdWzVsWp GBQiPkGyJ35vsL4paSKqS8 WvXFSxDYUeOoRwK40qkZ9s XRgklGA8IEKxfDdlgU9qLy IaGuEfTPasDJ7oPRMmS2hl dBOaIWDxCAPkV4waSdFrjU 9jaFxmMVxjZjFcZnMyMFxs dQQtuZCnScTAtPIhv9PfG2 ygEM0waYnheV7fKwAvCoLc FSWdgUKep2UzfOnfsvVpRG RjGGPamlWlnGUqokC1bvUw jLFjg4HicXVpkDrkxV6ccf NmjUNaQV0lOFAakKQoa2Zq qNB1iWTbGSWqX4Yrh79xVA CnVFWmbWTbdEO8KDGrmW6z nLwgyW0uGdZlTxYmALxvOS 6pYNZxK1gwpJZdSWZtJNPt R2vwNbVylE8ytOyhXTbmYk FcZnMyMFxsdHJjaCAgXHBs YWluXGYxXGZzMjAgQjFccG lsxI0dKfZlSdRuGAfwSI1c FYCkZ9bzrHVsZVIpTLVeF5 ruByCrvM3tqDzlPDoqIwUd ZnMyMFxsdHJjaCAuXHBsYW luXGYxXGZzMjBccGFyXHBs YWluXGYxXGZzMjBcbGFuZz EwMzNcaGljaFxmMVxkYmNo KHQaCWafE8fsCbFwF1NbDT TmWcSokRLvU6nfhEFcUPTh ERfzIFKfGWNtIbZqZSF8fN WLyK76WSMtOSShPHYloTzi uD8vcEN8YRIjw5gzqFBpoX lccGFyXHFsXHBsYWluXGYw UZMgNlIxsOikpS2iRyDzZe MyMFxwYXJ9 Embedded Images (test code = 8956468698) [facility] WITH [id number] 09:23:00 Test Item Value Reference Range Interpretation Comments WBC (test code = See_Comment H [Automated 6690-2) message] The sy stem which generated this result transmitted reference range : 4.30 - 11.10 10*3/?L. The reference range was not used to interpret this result as normal/abnormal . RBC (test code = See_Comment L [Automated 789-8) message] The sy stem which generated this result transmitted reference range : 3.93 - 5.25 10*6/?L. The reference range was not used to interpret this result as normal/abnormal . HGB (test code = 10.2 g/dL 11.6-15 L 718-7) HCT (test code = 32.8 % 35.7-45.2 L 4544-3) MCV (test code = 90.4 fL 80.6-95.5 787-2) MCH (test code = 28.1 pg 25.9-32.8 785-6) MCHC (test code = 31.1 g/dL 31.6-35.1 L 786-4) RDW-SD (test code = 44.6 fL 39-49.9 14681-9) RDW-CV (test code = 13.7 % 12-15.5 788-0) PLT (test code = See_Comment [Automated 777-3) message] The sy stem which generated this result transmitted reference range : 166 - 358 10*3/ ?L. The reference r doug was not used to interpret this result as normal/abnormal . MPV (test code = 8.9 fL 9.5-12.9 L 81139-6) NRBC/100 WBC (test See_Comment [Automat ed code = 2682568201) message] The system which generated this result transmitted reference range : 0.0 - 10.0 /100 WBCs. The refer ence range was not u sed to interpret th is result as normal/abnormal . NRBC x10^3 (test code <0.01 See_Comment [Auto mated = 1772850507) message] The s ystem which generated this result transmitted reference range : 10*3/?L. The reference range was not used to interpret this result as normal/abnormal . GRAN MAT (NEUT) % 68.2 % (test code = 770-8) IMM GRAN % (test code 0.40 % = 0068570226) LYMPH % (test code = 23.3 % 736-9) MONO % (test code = 7.0 % 5905-5) EOS % (test code = 0.9 % 713-8) BASO % (test code = 0.2 % 706-2) GRAN MAT x10^3(ANC) 8.46 10*3/uL 1.88-7.09 H (test code = 4720910680) IMM GRAN x10^3 (test 0.05 10*3/uL 0-0.06 code = 0611638689) LYMPH x10^3 (test code 2.89 10*3/uL 1.32-3.29 = 731-0) MONO x10^3 (test code 0.87 10*3/uL 0.33-0.92 = 742-7) EOS x10^3 (test code = 0.11 10*3/uL 0.03-0.39 711-2) BASO x10^3 (test code 0.03 10*3/uL 0.01-0.07 = 704-7) Lab Interpretation Abnormal (test code = 18907-0) [facility] IMMUNE [id number] 18:32:51 Test Item Value Reference Range Interpretation Comments RHIG CANDIDATE? No- see comment Patient i s not a (test code = candidate for R hIg- 5055) Patient is Rh Positive.Perfor med at [facility] Laboratory Services - [facility] Blood [address] [place] [address]Yljs Free: [phone] A No. [id number] [facility] ResourcesGALV ONLY - SYPHILIS IGG/[id number] 16:26:00 Test Item Value Reference Range Interpretation Comments Syphilis IgG/IgM (test Non-reactive Non-reactive code = 27593-7) ADAN (test code = ADAN) Non-reactive - No serologic evidence of T. pallidum infection. Cannot exclude incubating or early syphilis. Submit a second specimen in 2-4 weeks if syphilis is clinically suspected.Equivocal - Further testing to follow.Reactive - Further testing to follow. Lab Interpretation (test Normal code = 31955-4) [facility] Cord [id number] 15:22:00 Test Item Value Reference Range Interpretation Comments BASE EXCESS, CORD (test mEq/L code = 2200336260) AC PH, CORD (BEAKER) 7.18-7.38 (test code = 0907732662) PC02, CORD (test code = See_Comment [Au tomated message] 6616747499) The system [employer] generated this result transmitted ref erence range: 32 - 66 mmHg. The reference r doug was not used to interpret this result as normal/abnor mal. PO2, CORD (test code = <10 See_Comment L [Aut omated message] 0658456320) The system [employer] generated this result transmitted ref erence range: 10 - 30 mmHg. The reference r doug was not used to interpret this result as normal/abnor mal. BICARBONATE, CORD (test See_Comment [Au tomated message] code = 7898647675) The syste m which generated this result transmitted ref erence range: 17 - 27 mEq/L. The reference r doug was not used to interpret this result as normal/abnor mal. Lab Interpretation (test Abnormal code = 01472-0) [facility] Cord [id number] 15:22:00 Test Item Value Reference Range Interpretation Comments VENOUS BASE EXCESS, mEq/L CORD (test code = 0301652140) VENOUS PH, CORD (test 7.25-7.45 code = 8404829265) VENOUS PC02, CORD See_Comment [Automate d message] The (test code = system which ge nerated 1653791755) this result tra nsmitted reference range : 27 - 49 mmHg. The refer ence range was not used to interpret this result as normal/abnormal . VENOUS PO2, CORD (test See_Comment [Aut omated message] The code = 1644763049) system wh ich generated this result tra nsmitted reference range : 17 - 41 mmHg. The refer ence range was not used to interpret this result as normal/abnormal . VENOUS BICARBONATE, See_Comment [Automa gene message] The CORD (test code = system whi ch generated 3886175618) this result tra nsmitted reference range : 12 - 29 mEq/L. The refe rence range was not used to interpret this result as normal/abnormal . [facility] ResourcesHepatitis B Surface Dexdwpq6411-06-21 14:23:00 Test Item Value Reference Range Interpretation Comments HBsAg Semi-Quantitative (test code = 5195-3) [facility] ResourcesType and Screen - ONCE Hlkqumi1768-55-87 13:44:34 Test Item Value Reference Range Interpretation Comments ABO & RH (test code O POSITIVE Performe d at [facility] = 20) Laboratory [facility] Blood [facility] [facility] [address]Oedp Free: [phone] A No. [id number] IAT (test code = Negative Performed a t [facility] 1185) Laboratory Serv [facility] Blood [facility] [address] [facility] s [address]Ftfo Free: [phone] A No. [id number] [facility] ResourcesCB WITH BZAUGPEXLVLF2776-57-07 13:15:00 Test Item Value Reference Range Interpretation Comments WBC (test code = See_Comment H [Automated 9590-2) message] The sy stem which generated this result transmitted reference range : 4.30 - 11.10 10*3/?L. The reference range was not used to interpret this result as normal/abnormal . RBC (test code = See_Comment [Automated 082-8) message] The sy stem which generated this result transmitted reference range : 3.93 - 5.25 10*6/?L. The reference range was not used to interpret this result as normal/abnormal . HGB (test code = 12.3 g/dL 11.6-15 718-7) HCT (test code = 36.8 % 35.7-45.2 4544-3) MCV (test code = 85.8 fL 80.6-95.5 787-2) MCH (test code = 28.7 pg 25.9-32.8 785-6) MCHC (test code = 33.4 g/dL 31.6-35.1 786-4) RDW-SD (test code = 41.9 fL 39-49.9 91905-0) RDW-CV (test code = 13.5 % 12-15.5 788-0) PLT (test code = See_Comment H [Automated 777-3) message] The sy stem which generated this result transmitted reference range : 166 - 358 10*3/ ?L. The reference r doug was not used to interpret this result as normal/abnormal . MPV (test code = 8.9 fL 9.5-12.9 L 34498-0) NRBC/100 WBC (test See_Comment [Automat ed code = [id number]) message] The system which generated this result transmitted reference range : 0.0 - 10.0 /100 WBCs. The refer ence range was not u sed to interpret th is result as normal/abnormal . NRBC x10^3 (test code <0.01 See_Comment [Auto mated = [id number]) message] The s ystem which generated this result transmitted reference range : 10*3/?L. The reference range was not used to interpret this result as normal/abnormal . GRAN MAT (NEUT) % 62.4 % (test code = 770-8) IMM GRAN % (test code 0.50 % = [id number]) LYMPH % (test code = 27.9 % 736-9) MONO % (test code = 8.1 % 5905-5) EOS % (test code = 0.7 % 713-8) BASO % (test code = 0.4 % 706-2) GRAN MAT x10^3(ANC) 8.46 10*3/uL 1.88-7.09 H (test code = [id number]) IMM GRAN x10^3 (test 0.07 10*3/uL 0-0.06 H code = [id number]) LYMPH x10^3 (test code 3.79 10*3/uL 1.32-3.29 H = 731-0) MONO x10^3 (test code 1.10 10*3/uL 0.33-0.92 H = 742-7) EOS x10^3 (test code = 0.10 10*3/uL 0.03-0.39 711-2) BASO x10^3 (test code 0.05 10*3/uL 0.01-0.07 = 704-7) Lab Interpretation Abnormal (test code = 06822-0) [facility] URINALYSIS W SPECIFIC [id number] 20:18:00 Test Item Value Reference Range Interpretation Comments POCT U SP GRAV (test code = 3255) . 1.005-1.025 POCT PH U (test code = 3254) . 5-8 POCT U LEUK EST (test code = 3263) . Negative - Negative POCT U NIT (test code = 3262) . Negative - Negative POCT U PROT (test code = 3259) TRACE Negative - Negative POCT U GLU (test code = 3256) NEG Negative - Negative POCT U KETONE (test code = 3258) . Negative - Negative POCT U UROBILI (test code = 3260) . 0.2-1 POCT U BILI (test code = 3261) . Negative - Negative POCT U BLD (test code = 3257) . Negative - Negative POCT U COLOR (test code = 3266) POCT U APPEAR (test code = 3267) [facility] URINALYSIS W SPECIFIC [id number] 19:50:00 Test Item Value Reference Range Interpretation Comments POCT U SP GRAV (test code = 3255) . 1.005-1.025 POCT PH U (test code = 3254) . 5-8 POCT U LEUK EST (test code = 3263) . Negative - Negative POCT U NIT (test code = 3262) . Negative - Negative POCT U PROT (test code = 3259) neg Negative - Negative POCT U GLU (test code = 3256) neg Negative - Negative POCT U KETONE (test code = 3258) . Negative - Negative POCT U UROBILI (test code = 3260) . 0.2-1 POCT U BILI (test code = 3261) . Negative - Negative POCT U BLD (test code = 3257) . Negative - Negative POCT U COLOR (test code = 3266) . POCT U APPEAR (test code = 3267) [facility] BY [id number] 16:25:00 Test Item Value Reference Range Interpretation Comments Group B Streptococcus by PCR (test Positive Negative A code = 36564-4) Lab Interpretation (test code = Abnormal 74335-1) [facility] WITH [id number] 05:56:00 Test Item Value Reference Range Interpretation Comments WBC (test code = See_Comment H [Automated 4690-2) message] The system which generated this result transmit gene reference range : 4.30 - 11.10 10*3/?L. The reference range was not used to interpret this result as normal/abnormal . RBC (test code = See_Comment [Automated 789-8) message] The system which generated this result transmit gene reference range : 3.93 - 5.25 10*6/?L. The reference range was not used to interpret this result as normal/abnormal . HGB (test code = 12.9 g/dL 11.6-15 718-7) HCT (test code = 39.4 % 35.7-45.2 4544-3) MCV (test code = 88.9 fL 80.6-95.5 787-2) MCH (test code = 29.1 pg 25.9-32.8 785-6) MCHC (test code = 32.7 g/dL 31.6-35.1 786-4) RDW-SD (test code = 42.2 fL 39-49.9 10626-7) RDW-CV (test code = 12.8 % 12-15.5 788-0) PLT (test code = See_Comment H [Automated 777-3) message] The system which generated this result transmit gene reference range : 166 - 358 10*3/ ?L. The reference range was not u sed to interpret th is result as normal/abnormal . MPV (test code = 8.9 fL 9.5-12.9 L 72821-4) NRBC/100 WBC (test See_Comment [Automat ed code = [id number]) message] The system which generated this result transmit gene reference range : 0.0 - 10.0 /100 WBCs. The reference range was not used to interpret this result as normal/abnormal . NRBC x10^3 (test code <0.01 See_Comment [Auto mated = 8677233749) message] The system which generated this result transmit gene reference range : 10*3/?L. The reference range was not used to interpret this result as normal/abnormal . GRAN MAT (NEUT) % 68.9 % (test code = 770-8) IMM GRAN % (test code 0.50 % = 5021668067) LYMPH % (test code = 22.7 % 736-9) MONO % (test code = 6.9 % 5905-5) EOS % (test code = 0.5 % 713-8) BASO % (test code = 0.5 % 706-2) GRAN MAT x10^3(ANC) 10.68 10*3/uL 1.88-7.09 H (test code = 6143721434) IMM GRAN x10^3 (test 0.08 10*3/uL 0-0.06 H code = 5416703355) LYMPH x10^3 (test code 3.51 10*3/uL 1.32-3.29 H = 731-0) MONO x10^3 (test code 1.07 10*3/uL 0.33-0.92 H = 742-7) EOS x10^3 (test code = 0.07 10*3/uL 0.03-0.39 711-2) BASO x10^3 (test code 0.08 10*3/uL 0.01-0.07 H = 704-7) Lab Interpretation Abnormal (test code = 16130-9) [facility] URINALYSIS W SPECIFIC [id number] 21:38:00 Test Item Value Reference Range Interpretation Comments POCT U SP GRAV (test code = 3255) . 1.005-1.025 POCT PH U (test code = 3254) . 5-8 POCT U LEUK EST (test code = 3263) . Negative - Negative POCT U NIT (test code = 3262) . Negative - Negative POCT U PROT (test code = 3259) Trace Negative - Negative POCT U GLU (test code = 3256) Neg Negative - Negative POCT U KETONE (test code = 3258) . Negative - Negative POCT U UROBILI (test code = 3260) . 0.2-1 POCT U BILI (test code = 3261) . Negative - Negative POCT U BLD (test code = 3257) . Negative - Negative POCT U COLOR (test code = 3266) POCT U APPEAR (test code = 3267) [facility]
[2023-01-10 14:48] LABS: Urine Specific Gravity/Preg >1.030 (1.005-1.030)
[2023-01-10 14:57] VITALS: BMI 35.9
[2023-01-10] MEDS ORDERED: Levofloxacin500mg IV 500 MG/100 ML BAG IV SCH (15:00)
[2023-01-10] MEDS ORDERED: ONDANSETRON 4 MG (ODT) TAB PO PRN (16:30)
[2023-01-10] MEDS: METRONIDAZOLE 500mg IVPB 500 MG/100 ML BAG IV SCH (17:35)
[2023-01-10] MEDS: HYDROCODONE/APAP 7.5/325 MG TAB PO PRN ×2 (17:35→21:20)
--- NOTE | 2023-01-10 23:48 | OP ---
Date of Procedure: 01/10/2023 Surgeon: Zackery Tejeda MD, Preoperative Diagnosis: Cholecystitis with cholelithiasis. Postoperative Diagnosis: Cholecystitis with cholelithiasis. Procedure Performed: Laparoscopic cholecystectomy with indocyanine green cholangiography. Anesthesia: General endotracheal plus local with 0.25% Marcaine. Estimated Fluid Loss: Approximately 30 cc. Specimen: Gallbladder. Findings: 1.Short cystic duct. 2.Stone impacted in the gallbladder neck. 3.Significant scar tissue between omentum to the anterior surface of the gallbladder. 4.Scar tissue from the Adalberto pouch to the gallbladder was quite thick as well. 5.Encasement of the gallbladder with an inflammatory rind was noted as well. 6.Patient had diffuse oozing from all cut surfaces including the skin incisions and all intraabdomin al cut surfaces including liver bed requiring additional fulguration. Complications: None immediate. Implants: Surgicel clot matrix and Shilpa clot matrix powder. Disposition: Patient was transferred to recovery room in good condition. Procedure In Detail: After informed consent was obtained, patient was brought to the operating room and prepped and draped in the usual sterile fashion. After adequate anesthesia was achieved, I anest hetized the area of the supraumbilical position down to subcutaneous tissues. I made an incision in the skin and a 5 mm 0-degree optical trocar was introduced in the abdomen without complication. Insu fflation was obtained at this point without incident or complication. There was no injury to vital s tructures prior to the abdomen. I then placed 2 additional trocars, one in the epigastrium, one in t he right upper quadrant. Both of these were similarly anesthetized, sharply incised. A 5 mm trocar was placed under direct vision without evidence of complication. The umbilical trocar was then upsiz ed to a 12 mm under direct visualization without evidence of complication. I then proceeded to place the patient in the gallbladder position, which is the head up right-side up position. Ratcheted gra sper was used to grasp the patient's gallbladder at the fundus and placed toward the patient's right shoulder. There was significant scar tissue between the omentum and the duodenum to the gallbladder. This was taken down using the combination of electrocautery and blunt dissection using meticulous d issection. The scar tissue was quite dense and fibrous down as I approached the Adalberto pouch of th e gallbladder requiring an extended amount of time to remove these. At this point, I skeletonized 2 structures identified as both the cystic duct and cystic artery. The critical view of safety was obt ained at this point. I then performed ICG (indocyanine green) cholangiography to confirm the cystic duct, common duct confluence and found that there was indeed a short cystic duct, which was confirmed on indocyanine green cholangiography individually. At this point, I was able to place a double yash nium clips on the proximal side, singly on the distal side of both the cystic duct and cystic artery. These structures were then ligated with Endo Judith at this point without any bleeding or hemostati c maneuvers required. The gallbladder then was removed from the hepatic fossa and there was bleeding from all cut surfaces and most of the liver bed had significant oozing from it throughout the proced ure requiring fulguration with electrocautery. After the gallbladder was removed, it was placed in E ndoCatch bag, removed the umbilical trocar, and sent off for pathologic examination. I then irrigate d the hepatic fossa significantly with irrigation and found that there was diffuse oozing from majori ty of the cut surface of the liver bed, but predominantly on the fundus area where with most signific ant bleeding was encountered. This was still venous bleeding without any evidence of arterial bleedi ng and had a dark consistency without any pulsations to it. I turned indocyanine green on once again to make sure there is no bile duct injury. There was no evidence of spillage of bile throughout the procedure and the clips were found to be in good anatomic position on both the cystic duct and cysti c artery. At this point, I returned to the normal view. Irrigated the area once again. I placed a piece of Surgicel in the hepatic fossa and attempt to hold hemostasis. Hemostasis was improved, but not resolved at this point. All cut surfaces continued to ooze. Anesthesia provider gave TXA by the ir description, which had also improved some of the clotting appearance at this point. I then remove d the Surgicel from the hepatic fossa and inspected the area once again. The oozing continued throug hout. At this point, I had already fulgurated the hepatic fossa with electrocautery on a 45-50 spray setting. I then changed to an argon plasma child welfare counselor and attempted to achieve hemostasis using arg on plasma, however, the argon plasma child welfare counselor was dysfunctional at this point and did not adequatel y control the bleeding as it was weak and under power and was unable to advance the argon plasma beam away from the tip of the device and as such it was ineffective. I then returned to electrocautery a nd achieved hemostasis at this point. I then irrigated the area once again and no oozing was appreci ated at this point. I then sprayed Shilpa powder into the hepatic fossa and left the Surgicel in the side, not in the liver bed. At this point, I then desufflated the abdomen completely and gave it ov er 3 minutes of time to ensure hemostasis was achieved. After 3 minutes, I then re-insufflated the a bdomen, inspected Shilpa powder and saw no significant bleeding or oozing as the powder remained in p lace and was white in consistency and color, particularly at the fundus region of the hepatic fossa, which was where the majority of the oozing was appreciated. At this point, I took the Surgicel and p laced it on top of the Shilpa powder covering the entire hepatic fossa all the way down to near where the anatomic clips were placed, but not touching the ligation clips down near the cystic duct and cy stic artery confluence. At this point, the abdomen was inspected 1 last time. No additional hemosta tic was required. All effluent was crystal clear as it was removed. I desufflated the abdomen, insp ected once again. No hemostasis was required at this point. I left the Surgicel and Shilpa powder i n place to ensure hemostasis was achieved. I then turned my attention to the 12 mm trocar site and r emoved the 12 mm trocar, closed the trocar site using a Ronak-Amy suture passer with 0 Vicryl i nterrupted fashion, good approximation of tissues. I then inspected the hepatic fossa 1 last time. This was approximately 8 to 9 minutes of time and no additional bleeding was appreciated from the hep atic fossa or any of the surfaces at this point. I then desufflated the abdomen completely under dir ect visualization without evidence of complication. All remaining trocars were removed, all skin inc isions were copiously irrigated and closed with 4-0 Monocryl in running fashion. Dermabond was place d over top. Patient tolerated the procedure well without evidence of immediate complication and transferred to PACU in good condition. All counts were correct at the end of the case. ELY/JAQUELINE Voice ID: [id number] Report ID: [id number]
[2023-01-11] MEDS: METRONIDAZOLE 500mg IVPB 500 MG/100 ML BAG IV SCH ×2 (00:14→06:04)
[2023-01-11] MEDS: HYDROCODONE/APAP 7.5/325 MG TAB PO PRN ×2 (01:25→10:49)
[2023-01-11 03:18] LABS: Absolute Lymphocytes (CBC) 2.1 K/uL (0.7-4.9); Hematocrit 36.1 % (36.0-45.0); Lymphocytes % 13.3 % (15.3-44.8); MCV 86.2 fL (80-100); MPV 7.1 fL (7.6-11.3); Platelets 320 thou/uL (152-406); RBC Red Blood Cell Count 4.19 M/uL (3.86-4.86)
[2023-01-11 03:37] LABS: Albumin 2.9 g/dL (3.4-5.0); Bilirubin Total 0.3 mg/dL (0.2-1.0); Magnesium 1.7 mg/dL (1.6-2.4); Phosphorus 2.7 mg/dL (2.5-4.9); Potassium 4.4 mEq/L (3.5-5.1); Protein, Total 6.1 g/dL (6.4-8.2)
[2023-01-11] MEDS ORDERED: MAGNESIUM SULFATE 1 gm IVPB 1 GM/100 ML BAG IV ONE (06:00)
[2023-01-11] MEDS ORDERED: NA CHLORIDE 0.9% 500 ML IV ONE (06:11)
[2023-01-11 06:25] VITALS: O2SAT 96
[2023-01-11 09:26] VITALS: BP 96/57; TEMP 97
== END 2023-01-11 12:12 | disposition home or self-care (01) ==
LOC: OR 09:20 → 2ND 12:49
PROVIDERS: ADMIT Surgery; ATTEND Surgery
PROC: BF50200 Other Imaging of Bile Ducts using Fluorescing Agent, Indocyanine Green Dye, Intraoperative (ICD-10-PCS; 2023-01-10)
PROC: 0FT44ZZ Resection of Gallbladder, Percutaneous Endoscopic Approach (ICD-10-PCS; principal; 2023-01-10 10:45)
DX: K80.10 Calculus of gallbladder with chronic cholecystitis without obstruction (principal); K80.20 Calculus of gallbladder without cholecystitis without obstruction
CPT/HCPCS: 85025 ×2; 80048; 36415; 86900; 83735; 86850; 81025; 84100; 86901; 88304; 85730; 85018; 80053; 94010; 94760 ×3; 47563; Q0162; J3475; J2704; J2710; J2001; J2250; J3010 ×3; J1100; J0694; J2405 ×2; J0744; J7120 ×2; J7040